=== PATIENT | female | born 1985 | race Hispanic/Latino ===

== ENCOUNTER 2022-01-17 01:58 | Inpatient (IN) | payer OTHER, SELFPAY ==
--- OUTSIDE RECORDS SUMMARY | 2022-01-17 02:01 | XMS REPORT | Continuity of Care Document ---
:1985 Author Organization [facility] t Address [address] [place] [address] Care Team Providers Name Role Phone Nicole Primary Care Physician Joseph YEPEZ Attending Clinician Unavailable Lucho EATON S Attending Clinician Doctor Unassigned, Name Attending Clinician Unavailable Anel BRYSON Attending Clinician Unavailable Payers Payer Name Policy Type Policy Number Effective Date Expiration Date [facility] [id number] 2015 [facility] MEDICAID 00:00:00 Problems Condition Condition Condition Status Onset Resolution Last Treating Co mments Source Name Details Category Date Date Treatment Clinician Date Other Other Disease Active 2015-10 Univers general general 0-07 [place] of [place] and advice and advice 00 Nh dical for for Branch contracept contracept lam lam management management History of History of Disease Active 2015-10 U nivers hysterecto hysterecto 0-07 it y of my my 00:00: [place] 00 Medical Branch Hair loss Hair loss Disease Active 2015-10 Uni vers 0-07 ity of 00:00: [place] 00 Medical Branch Gestationa Gestationa Disease Active U nivers l diabetes l diabetes 6-16 it y of mellitus, mellitus, [place] antepartum antepartum 00 [place] dical Branch Allergies, Adverse Reactions, Alerts Allergy Allergy Status Severity Reaction(s) Onset Inactive Treating Comm ents Source Name Type Date Date Clinician NO KNOWN Drug Active Univers ALLERGIE Class ity of S [facility] Social History Social Habit Start Date Stop Date Quantity Comments Source Exposure to Not sure [facility] SARS-CoV-2 (event) Medica l Branch Alcohol intake 2016-08-02 2016-08-02 0 /d [facility] 00:00:00 00:00:00 [facility] Branch Tobacco use and 2015-11-07 2015-11-07 Never used [facility] exposure 00:00:00 00:00:00 [facility] Branch Sex [birth year] [facility] 00:00:00 00:00:00 [facility] Branch Smoking Status Start Date Stop Date Source Never smoker [facility] Medications Ordered Filled Start Stop Current Ordering Indication Dosage Frequency Signature Comments Components Source Medication Medication Date Date Medication? Clinician (SIG) Name Name dicyclomine Yes 20mg 20 mg, Univ ers (BENTYL) 01-16 Intramuscu ity o f injection 13:00: lar, QID, Walker as 20 mg 00 First dose Medical on Wed Branch 01/16/22 at 0800, Until Discontinu ed, Routine ketorolac 2021- No 30mg 30 mg, Unive rs (TORADOL) 01-16 Slow IV ity of injection 09:30: 08:23 Push, [place] 30 mg 00 :00 ONCE, 1 Medical dose, On Branch 01/16/22 at 0430, Routine
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 medication : BIANCA CH iopamidol 2021- No [id number] 120mL 120 mL, Univers (ISOVUE 01-16 Intravenou ity o f 370-500 mL) 08:30: 07:24 s, ONCE, 1 [place] injection 00 :00 dose, On Medica l 120 mL Wed Branch 01/16/22 at 0330, Routine ondansetron 2021- No 4mg 4 mg, Slow Univers (ZOFRAN 01-16 IV Push, ity of (PF)) 08:00: 06:52 ONCE, 1 [place] injection 4 00 :00 dose, On Medi nicholas mg Wed Branch 01/16/22 at 0300, TRACIE NaCl 0.9% 2022-0 2022- No 1000mL at 999 Uni vers (NS) IV 3- 03-23 mL/hr, ity of infusion 07:45[place] 08[place]21 [place]venou [place] 1,000 mL 00 :00 s, ONCE, 1 Medic al dose, On Branch 01/16/22 at 0245, TRACIE dicyclomine Yes [id number] 20mg Take 1 Univers 20 mg 3-23 tablet by ity of tablet 00:00: mouth [place] 00 every 6 Medical (six) Branch hours as needed for Abdominal pain. ibuprofen Yes [id number] 800mg Take 1 Univers 800 mg 3-23 tablet by ity of tablet 00:00: mouth [place] 00 every 8 Medical (eight) Branch hours as needed for Pain (scale 4-6). ondansetron Yes [id number] 4mg Take 1 Univers (ZOFRAN) 4 3-23 tablet by ity of mg tablet 00:00: mouth [place] 00 every 8 Medical (eight) Branch hours as needed for Nausea and Vomiting (N/V). No known 2015-10 No Univers medications 0-07 ity of 15:10: [address] Immunizations Ordered Filled Immunization Date Status Comments [facility] e Immunization Name Name TD 2016-01-30 Completed [facility] 00:00:00 [facility] TD 2016-01-30 Completed [facility] 00:00:00 [facility] Vital Signs Vital Name Observation Time Observation Value Comments Source Systolic blood 2022-01-16 06:40:00 116 mm[Hg] Univer sity pressure [facility] Diastolic blood 2022-01-16 06:40:00 82 mm[facility]Hg[facility] 2022-01-16 06:40:00 74 /min [facility] Body temperature 2022-01-16 06:40:00 36.22 [facility] rate 2022-01-16 06:40:00 18 /min [facility] Body height 2022-01-16 06:40:00 162.6 cm [facility] Oxygen saturation in 2022-01-16 06:40:00 96 /min [facility] Arterial blood by [facility] Pulse oximetry Branch Procedures Procedure Date / Time Performed Performing Clinician Sour e URINALYSIS 2022-01-16 07:41:00 Bianca Ch [facility] CT ABDOMEN PELVIS W 2022-01-16 07:26:26 Pérez Yepez [facility] [place] CONTRAST [facility] LIPASE 2022-01-16 06:42:00 Bianca Ch [facility] COMP. METABOLIC PANEL 2022-01-16 06:42:00 Bianca Ch [facility] ([id number]) [facility] CBC WITH DIFF 2022-01-16 06:42:00 Bianca Ch [facility] NOTICE OF PRIVACY 2022-01-16 06:32:41 Doctor Unassigned, No Univ [facility] PRACTICES Name [facility] CONSENT/REFUSAL FOR 2022-01-16 06:32:23 [facility] Unassigned, [facility] AND Name [facility] TREATMENT Encounters Start End Encounter Admission Attending Care Care Encounter Source Date/Time Date/Time Type Type Clinicians Facility Department ID 2022-01-16 2022-01-16 Emergency X LUCHOUNM [facility] ERT [id number] Univers 01:36:00 03:32:00 [facility]22-[facility]-16 2022-01-16 Emergency LuchoUNM [facility] [id number] Univers 01:36:00 03:32:00 Pérez MCGEE [id number] i ty [facility] [id number] [facility] [id number] [facility] 084 Branch 2022-01-16 2022-01-16 Orders Doctor KYLE [id number] Univers 00:00:00 00:00:00 Only Unassigned, LILIANA [id number] ity of [place] [facility] [id number] [facility] [id number] [facility] 009 Branch 2017-08-16 2017-08-16 Outpatient Maximus BRYSON [facility] [id number] Univers 11:00:00 11:00:00 JB silveira [facility] Results Test Description Test Time Test Comments Results Result Comments Source CBC with Differential 2022-01-16 07:02:42 Test Item Value Reference Range Interpretation Comme nts WBC (test code = 6690-2) See_Comment [A utomated message] The system which ge nerated this result transmit alma reference range: 4.30 - 1 1.10 10*3/?L. The reference r james was not used to interpr et this result as normal/abnor mal. RBC (test code = 789-8) See_Comment [Au tomated message] The system which ge nerated this result transmit alma reference range: 3.93 - 5 .25 10*6/?L. The reference r james was not used to interpr et this result as normal/abnor mal. HGB (test code = 718-7) 13.1 g/dL 11.6-15.0 HCT (test code = 4544-3) 39.5 % 35.7-45.2 MCV (test code = 787-2) 88.4 fL 80.6-95.5 MCH (test code = 785-6) 29.3 pg 25.9-32.8 MCHC (test code = 786-4) 33.2 g/dL 31.6-35.1 RDW-SD (test code = 00718-3) 39.6 fL 39.0-49.9 RDW-CV (test code = 788-0) 12.2 % 12.0-15.5 PLT (test code = 777-3) See_Comment [Au tomated message] The system which ge nerated this result transmit alma reference range: 166 - 35 8 10*3/?L. The reference range was not used to interpret th is result as normal/abnormal . MPV (test code = 26082-4) 9.3 fL 9.5-12.9 L NRBC/100 WBC (test code = See_Comment [ Automated message] The [id number]) system which ge nerated this result transmit alma reference range: 0.0 - 10 .0 /100 WBCs. The reference r james was not used to interpr et this result as normal/abnor mal. NRBC x10^3 (test code = <0.01 See_Comment [Au tomated message] The 2917503029) system which ge nerated this result transmit alma reference range: 10*3/?L. The reference range was not u sed to interpret this result as normal/abnormal . GRAN MAT (NEUT) % (test code 49.8 % = 770-8) IMM GRAN % (test code = 0.70 % 9858287700) LYMPH % (test code = 736-9) 42.6 % MONO % (test code = 5905-5) 4.7 % EOS % (test code = 713-8) 1.5 % BASO % (test code = 706-2) 0.7 % GRAN MAT x10^3(ANC) (test 2.97 10*3/uL 1.88-7.09 code = 0297733997) IMM GRAN x10^3 (test code = 0.04 10*3/uL 0.00-0.06 9841531449) LYMPH x10^3 (test code = 2.54 10*3/uL 1.32-3.29 731-0) MONO x10^3 (test code = 0.28 10*3/uL 0.33-0.92 L 742-7) EOS x10^3 (test code = 0.09 10*3/uL 0.03-0.39 711-2) BASO x10^3 (test code = 0.04 10*3/uL 0.01-0.07 704-7) Lab Interpretation (test Abnormal code = 28457-9) [place] [facility] [id number] 07:01:00 Test Item Value Reference Range Interpretation Comments NA (test code = 138 mmol/L 135-145 6833089226) K (test code = 4.0 mmol/L 3.5-5.0 9130342696) CL (test code = 102 mmol/L 98-108 0710746925) CO2 TOTAL (test code = 25 mmol/L 23-31 3410563351) AGAP (test code = 2-16 7511679706) BUN (test code = 10 mg/dL 7-23 1257424645) GLUCOSE (test code = 91 mg/dL 70-110 5506168045) CREATININE (test code = 0.43 mg/dL 0.50-1.04 L 7950675278) TOTAL BILI (test code = 0.5 mg/dL 0.1-1.7 4114049286) CALCIUM (test code = 9.2 mg/dL 8.6-10.6 6676338442) T PROTEIN (test code = 7.6 g/dL 6.3-8.2 1614054919) ALBUMIN (test code = 4.6 g/dL 3.5-5.0 6346298555) ALK PHOS (test code = 75 U/L 34-122 1629392513) ALTv (test code = 99 U/L 5-35 H 1742-6) AST(SGOT) (test code = 55 U/L 13-40 H 5725626904) eGFR (test code = mL/min/1.73m2 8373978547) JULIAN (test code = JULIAN) Association of Glomerular Filtration Rate (GFR) and Staging of Kidney Disease* + --+ --+ ------+| GFR (mL/min/1.73 m2) ?| With Kidney Damage ?| ?Without Kidney Damage+ --------+ --------+ +| ?>90 ?| ?Stage one ?| ? Normal ?+ ---+ ---+ -------+| ?60-89 ?| ?Stage two ?| ? Decreased GFR ? + --+ --+ ------+| ?30-59 ?| ?Stage three ?| ? Stage three ? + --+ --+ ------+| ?15-29 ?| ?Stage four ? | ? Stage four ?+ ---+ ---+ -------+| ?<15 (or dialysis) ? ?| ?Stage five ? | ? Stage five ?+ ---+ ---+ -------+ *Each stage assumes the associated GFR level has been in effect for at least three months. ?Stages 1 to 5, with or without kidney disease, indicate chronic kidney disease. Notes: Determination of stages one and two (with eGFR >59mL/min/1.73 m2) requires estimation of kidney damage for at least three months as defined by structural or functional abnormalities of the kidney, manifested by either:Pathological abnormalities or Markers of kidney damage (including abnormalities in the composition of the blood or urine or abnormalities in imaging tests). Lab Interpretation Abnormal (test code = 99164-5) [place] [facility], [id number] 07:01:00 Test Item Value Reference Range Interpretation Comments LIPASE (test code = 7071421593) 71 U/L 0-220 Lab Interpretation (test code = Normal 39630-2) [facility]"
[2022-01-17] MEDS ORDERED: ONDANSETRON 4 MG/2 ML VIAL ONE (03:38)
[2022-01-17] MEDS ORDERED: NA CHLORIDE 0.9% 1,000 ML ONE (03:38)
[2022-01-17] MEDS ORDERED: MORPHINE 4 MG/ML SYR ONE (03:38)
[2022-01-17] MEDS ORDERED: FAMOTIDINE 20 MG/2 ML VIAL IV ONE (03:39)
[2022-01-17 04:18] LABS: Absolute Lymphocytes (CBC) 1.1 K/uL (0.7-4.9); Hematocrit 44.8 % (36.0-45.0); Lymphocytes % 12.7 % (15.3-44.8); MPV 7.7 fL (7.6-11.3)
[2022-01-17 04:25] LABS: ALT/SGPT 105 U/L (12-78); AST/SGOT 35 U/L (15-37); BUN Blood Urea Nitrogen 10 mg/dL (7-18); Bicarbonate 28 mmol/L (21-32); Glucose Level 116 mg/dL (74-106); Potassium 3.1 mmol/L (3.5-5.1); Sodium Level 140 mmol/L (136-145)
[2022-01-17 04:26] LABS: Albumin 4.1 g/dL (3.4-5.0); Alkaline Phosphatase 85 U/L (45-117); Bilirubin Total 0.3 mg/dL (0.2-1.0); Lipase 63 U/L (73-393); Protein, Total 8.4 g/dL (6.4-8.2)
[2022-01-17 04:27] LABS: Urine Blood Trace-intact (Negative); Urine Glucose Negative (Negative); Urine Protein Negative (Negative); Urine Specific Gravity >=1.030 (1.005-1.030); Urine pH 5.5 (5.0-7.0)
[2022-01-17] MEDS ORDERED: CEFTRIAXONE 1000 MG/VIAL ONE (04:50)
[2022-01-17 04:53] LABS: Urine Specific Gravity/Preg >1.030 (1.005-1.030)
--- NOTE | 2022-01-17 04:56 | EDPHYS ---
Physician Documentation [facility] Name: Vida Hillman Age: 36 yrs Sex: Female : 1985 Arrival Date: 01/17/2022 Time: 01:58 Bed 25 Private MD: ED Physician Malvin Licea HPI: 01/17 03:41 This 36 yrs old Female presents to ER via EMS with complaints of PERCOCET OD. basil 03:41 The patient presents with confusion, decreased mental status. Onset: The basil symptoms/episode began/occurred just prior to arrival. Possible causes: drug use, low blood sugar, unknown. Associated signs and symptoms: Pertinent positives: confusion. Current symptoms: In the emergency department the patient's symptoms have improved, mildly. [employer]: 02:14 LMP N/A - sv1 Historical: - Allergies: 02:14 Hydrocodone-Acetaminophen; sv1 - Immunization history:: Adult Immunizations not up to date, Client reports having NOT received the Covid vaccine. Last tetanus immunization: not immunized Pneumococcal vaccine is not up to date, Flu vaccine is not up to date. Patient has never been vaccinated. Hepatitis A vaccine is not up to date Hepatitis B vaccine is not up to date Meningococcal vaccine is not up to date Vaccine Information Sheet provided. - Social history:: Smoking status: Patient denies any tobacco usage or history of. ROS: 04:29 Constitutional: Negative for fever, chills, and weight loss, Eyes: Negative for injury, basil pain, redness, and discharge, ENT: Negative for injury, pain, and discharge, Neck: Negative for injury, pain, and swelling, Cardiovascular: Negative for chest pain, palpitations, and edema, Respiratory: Negative for shortness of breath, cough, wheezing, and pleuritic chest pain, Back: Negative for injury and pain, : Negative for injury, bleeding, discharge, and swelling, MS/Extremity: Negative for injury and deformity, Skin: Negative for injury, rash, and discoloration, Neuro: Negative for headache, weakness, numbness, tingling, and seizure, Psych: Negative for depression, anxiety, suicide ideation, homicidal ideation, and hallucinations, Allergy/Immunology: Negative for hives, rash, and allergies, Endocrine: Negative for neck swelling, polydipsia, polyuria, polyphagia, and marked weight changes. 04:29 Abdomen/GI: Positive for abdominal pain, nausea and vomiting, diarrhea. 04:29 Skin: Negative for abrasions, abscesses, lesions, pallor. Exam: 04:29 Constitutional: This is a well developed, well nourished patient who is awake, alert, basil and in no acute distress. Head/Face: Normocephalic, atraumatic. Eyes: Pupils equal round and reactive to light, extra-ocular motions intact. Lids and lashes normal. Conjunctiva and sclera are non-icteric and not injected. Cornea within normal limits. Periorbital areas with no swelling, redness, or edema. ENT: Nares patent. No nasal discharge, no septal abnormalities noted. Tympanic membranes are normal and external auditory canals are clear. Oropharynx with no redness, swelling, or masses, exudates, or evidence of obstruction, uvula midline. Mucous membranes moist. Neck: Trachea midline, no thyromegaly or masses palpated, and no cervical lymphadenopathy. Supple, full range of motion without nuchal rigidity, or vertebral point tenderness. No Meningismus. Chest/axilla: Normal chest wall appearance and motion. Nontender with no deformity. No lesions are appreciated. Cardiovascular: Regular rate and rhythm with a normal S1 and S2. No gallops, murmurs, or rubs. Normal PMI, no JVD. No pulse deficits. Respiratory: Lungs have equal breath sounds bilaterally, clear to auscultation and percussion. No rales, rhonchi or wheezes noted. No increased work of breathing, no retractions or nasal flaring. Back: No spinal tenderness. No costovertebral tenderness. Full range of motion. Pelvic Exam: Normal external genitalia. Speculum exam with closed cervical os, no discharge or bleeding noted. Bimanual exam with normal adnexa, no adnexal or cervical motion tenderness. Normal uterus. Female : Normal external genitalia. Skin: Warm, dry with normal turgor. Normal color with no rashes, no lesions, and no evidence of cellulitis. MS/ Extremity: Pulses equal, no cyanosis. Neurovascular intact. Full, normal range of motion. Neuro: Awake and alert, GCS 15, oriented to person, place, time, and situation. Cranial nerves II-XII grossly intact. Motor strength 5/5 in all extremities. Sensory grossly intact. Cerebellar exam normal. Normal gait. Psych: Awake, alert, with orientation to person, place and time. Behavior, mood, and affect are within normal limits. 04:29 Abdomen/GI: Inspection: abdomen appears normal, Bowel sounds: normal, Palpation: mild abdominal tenderness, in all quadrants, Liver: no appreciated palpable abnormalities, Hernia: not appreciated. Vital Signs: 02:09 BP 108 / 63 LA Sitting (auto/reg); Pulse 95; Resp 21 S; Temp 98.5(O); Pulse Ox 100% on sv1 R/A; Weight 68.04 kg; Height 5 ft. 4 in. (162.56 cm); Pain 10/10; 02:17 BP 108 / 63 LA Sitting (auto/reg); Pulse 95 MON; Resp 21 S; Temp 98.5(O); Pulse Ox 100% sv1 on R/A; Pain 10/10; 02:09 Body Mass Index 25.75 (68.04 kg, 162.56 cm) sv1 MDM: 02:08 Patient medically screened. [facility] 04:31 Data reviewed: vital signs, nurses notes, lab test result(s), radiologic studies, CT basil scan. 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 rate is 95 beats/min, rhythm is regular, Pulse oximetry: on room air is 100 %. Test interpretation: by ED physician or midlevel provider: ECG, plain radiologic studies. Counseling: I had a detailed discussion with the patient and/or guardian regarding: the historical points, exam findings, and any diagnostic results supporting the discharge/admit diagnosis, lab results, radiology results, the need for outpatient follow up. 01/17 02:09 Order name: CBC with Diff; Complete Time: 04:27 [facility] 01/17 02:09 Order name: CMP; Complete Time: 04:27 [facility] 01/17 02:09 Order name: Lipase; Complete Time: 04:27 [facility] 01/17 04:27 Order name: Urine --Ancillary (enter results); Complete Time: 04:54 [facility] 01/17 04:27 Order name: Urine Dipstick-Ancillary; Complete Time: 04:27 EDAZ 01/17 04:28 Order name: Urine Culture [facility] 01/17 05:15 Order name: Stool Culture [facility] 01/17 05:17 Order name: Fecal Leukocyte Stain [facility] 01/17 05:17 Order name: Occult Blood [facility] 01/17 05:20 Order name: COVID-19/FLU A+B (Document "Date of Onset" if Symptomatic) mw2 01/17 02:09 Order name: IV Saline Lock; Complete Time: 03:49 [facility] 01/17 02:09 Order name: Labs collected and sent; Complete Time: 03:49 [facility] 01/17 02:09 Order name: Urine Dipstick-Ancillary (obtain specimen); Complete Time: 04:39 [facility] 01/17 02:09 Order name: Urine Test (obtain specimen); Complete Time: 04:39 [facility] Administered Medications: 02:30 Drug: morphine 4 mg Route: IVP; Site: right antecubital; sv1 04:38 Follow up: Response: No adverse reaction; Pain is decreased sv1 03:48 Drug: NS 0.9% 1000 ml Route: IV; Rate: 1 bolus; Site: right antecubital; sv1 03:48 Drug: Pepcid (famotidine) 20 mg Route: IVP; Site: right antecubital; sv1 03:49 Drug: Zofran (Ondansetron) 4 mg Route: IVP; Site: right antecubital; sv1 04:09 Follow up: Response: No adverse reaction sv1 04:09 Follow up: Response: No adverse reaction; Pain is decreased sv1 04:11 Not Given (Duplicate Order): Zofran (Ondansetron) 4 mg IVP once; over 2 minutes sv1 04:56 Drug: Rocephin (cefTRIAXone) 1 grams Route: IV; Rate: bolus; Site: right antecubital; sv1 05:19 Follow up: Response: No adverse reaction; IV Status: Completed infusion sv1 06:51 Follow up: Response: No adverse reaction sv1 05:18 Drug: Potassium Effervescent Tablet 50 mEq Route: PO; sv1 06:51 Follow up: Response: No adverse reaction sv1 05:18 Drug: Tylenol 1000 mg Route: PO; sv1 06:54 Follow up: Response: No adverse reaction; Temperature is decreased sv1 07:08 Drug: Cipro (ciprofloxacin) 400 mg Volume: 200 ml; Route: IVPB; Infused Over: 60 mins; sv1 Site: right antecubital; 07:08 Drug: NS 0.9% with KCl 20 mEq/L 1000 ml Route: IV; Rate: 125 ml/hr; Site: right sv1 antecubital; Disposition Summary: 01/17/22 05:16 Hospitalization Ordered Hospitalization Status: Observation basil Provider: Lizandro Yousif cha Location: Telemetry/MedSurg (observation)(01/17/22 05:16) basil Condition: Fair(01/17/22 05:16) basil Problem: new(01/17/22 05:16) basil Symptoms: have improved(01/17/22 05:16) basil Bed/Room Type: Standard [facility] Room Assignment: 222(01/17/22 08:18) ss Diagnosis - Abdominal tenderness basil - Fever, unspecified basil - Diarrhea, unspecified(01/17/22 05:16) basil - Weakness basil - Hypokalemia(01/17/22 05:16) basil Forms: - Medication Reconciliation Form basil - SBAR form basil Signatures: Dispatcher [employer] EDMS Malvin Licea MD MD cha Smirch, Shelby RN RN ss King Bass RN RN sv1 Corrections: (The following items were deleted from the chart) 04:48 03:04 Abdomen Pelvis W Con+CT.RAD.BRZ ordered. EDMS EDMS 05:15 04:55 Home basil basil 05:15 04:55 new basil basil 05:15 04:55 have improved basil basil 05:15 04:55 Stable basil basil 05:15 04:55 Vomiting basil basil 05:15 04:55 Diarrhea, unspecified basil basil 05:15 04:55 UTI/ Urinary tract infection, site not specified basil basil 05:15 04:55 Hypokalemia basil basil 08:18 05:16 basil ss
--- NOTE | 2022-01-17 04:56 | ER ---
Nurse's Notes [facility] Name: Vida Hillman Age: 36 yrs Sex: Female : 1985 Arrival Date: 01/17/2022 Time: 01:58 Bed 25 Private MD: Diagnosis: Abdominal tenderness;Fever, unspecified;Diarrhea, unspecified;Weakness;Hypokalemia Presentation: 01/17 02:09 Chief complaint: Patient states: abd pain, nausea and vomiting. Coronavirus screen: sv1 Vaccine status: Patient reports being unvaccinated. no flu, pna or covid vaccinations. Client denies travel out of the [place] in the last 14 days. Ebola Screen: Patient denies exposure to infectious person. Patient denies travel to an Ebola-affected area in the 21 days before illness onset. No symptoms or risks identified at this time. Initial Sepsis Screen: Does the patient meet any 2 criteria? No. Patient's initial sepsis screen is negative. Does the patient have a suspected source of infection? No. Patient's initial sepsis screen is negative. Risk Assessment: Do you want to hurt yourself or someone else? Patient reports no desire to harm self or others. Onset of symptoms was January 14, 2022. 02:09 Method Of Arrival: EMS: [facility] sv1 02:09 Acuity: MELLY 3 sv1 Triage Assessment: 02:14 General: Appears distressed, uncomfortable, Behavior is cooperative, appropriate for sv1 age, flat, Denies. 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 Last tetanus immunization: not immunized Pneumococcal vaccine is not up to date, Flu vaccine is not up to date. Patient has never been vaccinated. Hepatitis A vaccine is not up to date Hepatitis B vaccine is not up to date Meningococcal vaccine is not up to date Vaccine Information Sheet provided. - Social history:: Smoking status: Patient denies any tobacco usage or history of. Screenin:16 Abuse screen: Denies threats or abuse. Nutritional screening: No deficits noted. sv1 Tuberculosis screening: No symptoms or risk factors identified. Fall Risk None identified. Assessment: 02:57 Pain: Complains of pain in abdomen. sv1 08:54 General: Gave report to Mariya Barron cb5 Vital Signs: 02:09 BP 108 / 63 LA Sitting (auto/reg); Pulse 95; Resp 21 S; Temp 98.5(O); Pulse Ox 100% on sv1 R/A; Weight 68.04 kg; Height 5 ft. 4 in. (162.56 cm); Pain 10/10; 02:17 BP 108 / 63 LA Sitting (auto/reg); Pulse 95 MON; Resp 21 S; Temp 98.5(O); Pulse Ox 100% sv1 on R/A; Pain 10/10; 02:09 Body Mass Index 25.75 (68.04 kg, 162.56 cm) sv1 ED Course: 01:58 Patient arrived in ED. mw2 02:06 King Bass, BILLY is Primary Nurse. sv1 02:08 Malvin Licea MD is Attending Physician. basil 02:14 Triage completed. sv1 02:14 Arm band placed on right wrist. sv1 02:16 Patient has correct armband on for positive identification. Placed in gown. Bed in low sv1 position. Call light in reach. Side rails up X2. 02:56 Inserted saline lock: 20 gauge in right antecubital area, using aseptic technique. sv1 04:44 Urine Culture Sent. sv1 05:15 Lizandro Yousif is Hospitalizing Provider. basil 05:43 COVID-19/FLU A+B (Document "Date of Onset" if Symptomatic) Sent. lp1 Administered Medications: 02:30 Drug: morphine 4 mg Route: IVP; Site: right antecubital; sv1 04:38 Follow up: Response: No adverse reaction; Pain is decreased sv1 03:48 Drug: NS 0.9% 1000 ml Route: IV; Rate: 1 bolus; Site: right antecubital; sv1 03:48 Drug: Pepcid (famotidine) 20 mg Route: IVP; Site: right antecubital; sv1 03:49 Drug: Zofran (Ondansetron) 4 mg Route: IVP; Site: right antecubital; sv1 04:09 Follow up: Response: No adverse reaction sv1 04:09 Follow up: Response: No adverse reaction; Pain is decreased sv1 04:11 Not Given (Duplicate Order): Zofran (Ondansetron) 4 mg IVP once; over 2 minutes sv1 04:56 Drug: Rocephin (cefTRIAXone) 1 grams Route: IV; Rate: bolus; Site: right antecubital; sv1 05:19 Follow up: Response: No adverse reaction; IV Status: Completed infusion sv1 06:51 Follow up: Response: No adverse reaction sv1 05:18 Drug: Potassium Effervescent Tablet 50 mEq Route: PO; sv1 06:51 Follow up: Response: No adverse reaction sv1 05:18 Drug: Tylenol 1000 mg Route: PO; sv1 06:54 Follow up: Response: No adverse reaction; Temperature is decreased sv1 07:08 Drug: Cipro (ciprofloxacin) 400 mg Volume: 200 ml; Route: IVPB; Infused Over: 60 mins; sv1 Site: right antecubital; 07:08 Drug: NS 0.9% with KCl 20 mEq/L 1000 ml Route: IV; Rate: 125 ml/hr; Site: right sv1 antecubital; Outcome: 04:55 Discharge ordered by . basil 05:16 Decision to Hospitalize by Provider. basil 09:32 Patient left the ED. dw3 Signatures: Malvin Licea MD MD cha Pena, Laura, RN RN lp1 Lucien Hardwick mw2 King Bass RN RN sv1 Nishi Hernández, BILLY RN cb5 Yvette Smith RN RN dw3 Corrections: (The following items were deleted from the chart) 04:09 03:40 Zofran (Ondansetron) 4 mg IVP in right antecubital sv1 sv1 04:09 03:40 morphine 4 mg IVP in right antecubital sv1 sv1
[2022-01-17] MEDS ORDERED: ACETAMINOPHEN 500 MG TAB ONE (05:14)
[2022-01-17] MEDS ORDERED: POTASSIUM 25 MEQ EFFERV TAB ONE (05:14)
--- NOTE | 2022-01-17 05:47 | P.HP ---
Certification for Inpatient Patient admitted to: Observation With expected LOS: <2 Midnights Patient will require the following post-hospital care: None Practitioner: I am a practitioner with admitting privileges, knowledge of patient current condition, hospital course, and medical plan of care. Services: Services provided to patient in accordance with Admission requirements found in Title 42 Section 412.3 of the Code of Federal Regulations <Gianna Lundberg - Last Filed: 01/17/22 05:42> Patient History Date of Service: 01/17/22 Reason for admission: N/V/D, Abd Pain, Fever History of Present Illness: patient is a 36-year-old female who presented to the ED with 2-week history of nausea vomiting diarrhea fever abdominal pain weakness. She states she went to the [place] ER last night, had an abdominal CT and was prescribed Bentyl and Zofran. She states the Bentyl gave her an allergic reaction and she started feeling very poorly so she decided to come to the ED. Labs here remarkable for potassium 3.1 and nitrates in the urine. In the ED she received morphine, fluids. Zofran, Rocephin, Tylenol. She was going to be discharged but then spiked a fever. And patient does not feel comfortable leaving. Patient is a poor historian. Will admit for observation Home medications list reviewed: Yes - Past Medical/Surgical History Diabetic: No Past Medical History: Patient denies medical history -: section in 1999,2001 and 2003 -: Open heart surgery -: Cholecystectomy -: Hysterectomy -: Gastric sleeve Psychosocial/ Personal History: Patient lives at home with her . - Family History Mother -: Diabetes Notes: both parents and siblings have diabetes Father -: Hypertension Notes: brother is hypertensive. - Social History Smoking Status: Never smoker Alcohol use: No CD- Drugs: No Caffeine use: No Place of Residence: Home <Gianna Lundberg - Last Filed: 01/17/22 05:42> Date of Service: 01/17/22 <Merlene Benjamin - Last Filed: 01/17/22 08:03> Allergies No Known Drug Allergies Allergy (Unverified 03/13/15 08:16) Unknown Home Medications: Vit27&Calcium/Iron/FA [ Rx Tablet] 1 each PO DAILY 11/22/14 Ciprofloxacin HCl [Cipro 500 MG Tablet] 500 mg PO BID 7 Days tablet 01/25/15 Codeine/APAP [Tylenol W/Codeine #3 tab] 1 tab PO Q6HP PRN #25 tab 01/25/15 Review of Systems General: Fever, Weakness, Malaise Gastrointestinal: Nausea, Vomiting, Abdominal Pain, Diarrhea <Gianna Lundberg - Last Filed: 01/17/22 05:42> Physical Examination - Physical Exam General: Alert, In no apparent distress HEENT: Atraumatic, PERRLA, Other (Dry mucous membranes), EOMI, Sclerae nonicteric Neck: Supple, 2+ carotid pulse no bruit, No LAD, Without JVD or thyroid abnormality Respiratory: Clear to auscultation bilaterally, Normal air movement Cardiovascular: Normal S1 S2 Gastrointestinal: Normal bowel sounds, No tenderness Musculoskeletal: No tenderness Integumentary: No rashes Neurological: Normal speech, Normal strength at 5/5 x4 extr, Normal tone, Normal affect - Studies Laboratory Data (last 24 hrs) 01/17/22 03:45: Sodium 140, Potassium 3.1 L, BUN 10, Creatinine 0.61, Glucose 116 H, Total Bilirubin 0.3, AST 35, ALT 105 H, Alkaline Phosphatase 85, Lipase 63 L 01/17/22 03:45: WBC 8.60, Hgb 15.1 H, Hct 44.8, Plt Count 250 Microbiology Data (last 24 hrs): 01/17/22 05:17 Stool Stool Occult Blood (BESSY) - 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 <Gianna Lundberg - Last Filed: 01/17/22 05:42> - Studies Laboratory Data (last 24 hrs) 01/17/22 03:45: Sodium 140, Potassium 3.1 L, BUN 10, Creatinine 0.61, Glucose 116 H, Total Bilirubin 0.3, AST 35, ALT 105 H, Alkaline Phosphatase 85, Lipase 63 L 01/17/22 03:45: WBC 8.60, Hgb 15.1 H, Hct 44.8, Plt Count 250 Microbiology Data (last 24 hrs): 01/17/22 05:17 Stool Stool Occult Blood (BESSY) - 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 patient will be on clear liquid diet. Tylenol as needed fever. likely discharge the next 24 hours. Lovenox for DVT prophylaxis. Replete potassium Discharge Plan: Home Plan to discharge in: 24 Hours - Advance Directives Does patient have a Living Will: No Does patient have a Durable POA for Healthcare: No - Code Status/Comfort Care Code Status Assessed: Yes (Full) Critical Care: No Time Spent Managing Pts Care (In Minutes): 70 <Gianna Lundberg - Last Filed: 01/17/22 05:42> Date of Service: 01/17/22 Subjective: HPI as mentioned above Physical Examination: Vitals: Afebrile vital signs are stable Physical exam: Cardiovascular: Within normal limits. Lungs: Within normal limits Abdomen: Within normal limits Neuro: Awake, alert, oriented to person place and time Assessment: 1. Abdominal pain/intractable nausea and vomiting Plan: 1. Continue with current plan of care as mentioned above <Merlene Benjamin - Last Filed: 01/17/22 08:03>
[2022-01-17 06:31] LABS: SARS-COV-2 RT PCR NEGATIVE (NEGATIVE)
[2022-01-17] MEDS ORDERED: CIPROFLOXACIN HCL 500 MG TAB ONE (07:00)
[2022-01-17] MEDS ORDERED: NS KCL 20MEQ 1,000 ML IV ONE (07:01)
[2022-01-17 09:49] VITALS: BMI 28.3
[2022-01-17] MEDS ORDERED: ZOLPIDEM TARTRATE 5 MG TABLET PO PRN (12:38)
[2022-01-17] MEDS ORDERED: ACETAMINOPHEN 500 MG TAB PO PRN (12:38)
[2022-01-17] MEDS ORDERED: HYDROMORPHONE HCL 0.5 MG/0.5 ML INJ IV PRN (13:05)
[2022-01-17] MEDS: ENOXAPARIN 40 MG/0.4 ML SQ SCH (13:20)
[2022-01-17] MEDS: MORPHINE 2 MG/ML SYR IV PRN (15:17)
[2022-01-17] MEDS: D5 0.45 NS 1,000 ML IV SCH (16:05)
[2022-01-17] MEDS: HYDROCORTISONE SUC 100 MG INJ IV SCH (17:27)
[2022-01-17] MEDS: LOPERAMIDE HCL 2 MG CAPSULE PO PRN (17:28)
--- NOTE | 2022-01-17 17:38 | RAD REPORT ---
EXAM DESCRIPTION: CTAbdomen Pelvis W Contrast - 01/17/2022 5:13 pm CLINICAL HISTORY: Abdominal pain. diarrhea; nause and vomiting COMPARISON: No comparisons TECHNIQUE: Biphasic CT imaging of the abdomen and pelvis was performed with 100 ml non-ionic IV cont rast. All CT scans are performed using dose optimization technique as appropriate and may include automated exposure control or mA/KV adjustment according to patient size. FINDINGS: Linear atelectasis is present both posterior lung bases.Postoperative changes are present about the stomach. Cholecystectomy clips. The liver, spleen, pancreas, adrenal glands and kidneys are within normal limits. No bowel obstruction, free air, free fluid or abscess. Mildly prominent fluid-filled small bowel loop s are seen in the central abdomen. Fluid filled loops of colon also present. The appendix is normal. No evidence of significant lymphadenopathy. No suspicious bony findings. IMPRESSION: Findings suggesting mild enteritis/colitis pattern.
[2022-01-18] MEDS: HYDROCORTISONE SUC 100 MG INJ IV SCH ×3 (00:05→17:40)
[2022-01-18] MEDS: LOPERAMIDE HCL 2 MG CAPSULE PO PRN ×4 (03:12→17:40)
[2022-01-18] MEDS: D5 0.45 NS 1,000 ML IV SCH (03:12)
[2022-01-18] MEDS: ONDANSETRON 4 MG/2 ML VIAL IV PRN ×2 (03:15→14:02)
[2022-01-18] MEDS: MORPHINE 2 MG/ML SYR IV PRN ×3 (03:15→17:44)
[2022-01-18 06:54] LABS: Bicarbonate 26 mmol/L (21-32); Glucose Level 110 mg/dL (74-106); Potassium 3.6 mmol/L (3.5-5.1); Sodium Level 140 mmol/L (136-145)
[2022-01-18 07:01] LABS: BUN Blood Urea Nitrogen < 3 mg/dL (7-18)
[2022-01-18 08:09] VITALS: O2SAT 100
[2022-01-18] MEDS: ENOXAPARIN 40 MG/0.4 ML SQ SCH (09:55)
[2022-01-18] MEDS ORDERED: clonazePAM 1 MG TAB PO ONE (10:17)
[2022-01-18 13:46] LABS: C.diff Antigen/Toxin Ag neg : Tox neg (NEG : NEG)
[2022-01-18] MEDS ORDERED: clonazePAM 0.5 MG TAB PO SCH (14:00)
[2022-01-18] MEDS ORDERED: POTASSIUM 25 MEQ EFFERV TAB PO ONE (15:00)
[2022-01-18 16:18] VITALS: BP 94/61; TEMP 97
== END 2022-01-18 19:00 | disposition home or self-care (01) | DRG 641 ==
LOC: ER 01:58 → ERHOLD 05:42 → 2ND 08:58 → OBSVTOIN 09:34
PROVIDERS: ADMIT Hospitalist; ATTEND Hospitalist
DX: E87.6 Hypokalemia (principal); R11.2 Nausea with vomiting, unspecified; R19.7 Diarrhea, unspecified; R53.1 Weakness; Z98.84 Bariatric surgery status; Z20.822 Contact with and (suspected) exposure to COVID-19
CPT/HCPCS: 0240U; 36415; 74177; 80048; 80053; 81003; 81025; 82274; 83690; 85025; 87045; 87046; 87077; 87086; 87088; 87186; 87324; 87449; 89055; 96365; 96375; 99284; G0378; J1650; J1720; J2270; J2405; J3480; J7030; J7799; Q9967

== ENCOUNTER → 2023-12-01 | Emergency (ER) | payer SELFPAY ==
[~2023-12-01] MED LIST: FLUORESCEIN SODIUM 1 MG/WRAP ONE; TETRACAINE HCL 0.5% 4ML OPTH ONE
--- OUTSIDE RECORDS SUMMARY | 2023-12-01 17:12 | XMS REPORT | Continuity of Care Document ---
Author Name Unknown Address [address] [place] [address] [facility] thconnect Address [address] [place] [address] Care Team Providers Care Medical Typist Name Role Phone HERBERT SMITH Primary Care Physician Unavailab DAXA Mcfarlane Attending Clinician Unavailable Daxa Johnson Attending Clinician [phone] Doctor Unassigned, [place] Attending Clinician U JB Suero Attending Clinician Unavailable DAXA YEPEZ Admitting Clinician Unavailable Payers Payer Name Policy Type Policy Number Effective Date Expirati on Date Source [facility] MEDICAID [id number] 2015 00:00:00 Problems Condition Name Condition Details Condition Category Status Onset Date Resolution Date Last Treatment Date Treating Clinician Comments Source Other general counseling and advice for contracept lam management Other general counseling and advice for contracept lam management Disease Active 2015-10 00:00: 00 [facility] History of hysterecto my History of hysterecto my Disease Active 2015-10 00:00: 00 [facility] Hair loss Hair loss Disease Active 2015-10 00:00: 00 [facility] Gestationa l diabetes mellitus, antepartum Gestationa l diabetes mellitus, antepartum Disease Active 04-11 00:00: 00 [facility] Allergies, Adverse Reactions, Alerts Allergy Name Allergy Type Status Severity Reaction(s) Onset Date Inactive Date Treating Clinician Comments Source NO KNOWN ALLERGIE S Drug Class Active [facility] Social History Social Habit Start Date Stop Date Quantity Comments Source Exposure to SARS-CoV-2 (event) Not sure [facility] Alcohol intake 2016-08-02 00:00:00 2016-08-02 00:00:00 0 /d [facility] Tobacco use and exposure 2015-11-07 00:00:00 2015-11-07 00:00:00 Never used [facility] Sex Ass[birth year] At 1985 00:00:00 1985 00:00:00 [facility] Smoking Status Start Date Stop Date Source Never smoker [facility] Medications Ordered Medication Name Filled Medication Name Start Date Stop Date Current Medication? Ordering Clinician Indication Dosage Frequency Signature (SIG) Comments Components Source dicyclomine (BENTYL) injection 20 mg 01-16 13:00: 00 Yes 20mg 20 mg, Intramuscu lar, QID, First dose on Fri01/16/22 at 0800, Until Discontinu ed, Routine [facility] ketorolac (TORADOL) injection 30 mg 01-16 09:30: 00 01-16 08:23 :00 No 30mg 30 mg, Slow IV Push, ONCE, 1 dose, On Fri01/16/22 at 0430, Routine
engineering faculty member approving Restricted medication : POORNIMA CH [facility] iopamidol (ISOVUE 370-500 mL) injection 120 mL 01-16 08:30: 00 01-16 07:24 :00 No [id number] 120mL 120 mL, Intravenou s, ONCE, 1 dose, On Fri01/16/22 at 0330, Routine [facility] ondansetron (ZOFRAN (PF)) injection 4 mg 01-16 08:00: 00 01-16 06:52 :00 No 4mg 4 mg, Slow IV Push, ONCE, 1 dose, On Fri01/16/22 at 0300, TRACIE [facility] NaCl 0.9% (NS) IV infusion 1,000 mL 01-16 07:45: 00 01-16 08:21 :00 No 1000mL at 999 mL/hr, Intravenou s, ONCE, 1 dose, On Fri01/16/22 at 0245, TRACIE [facility] dicyclomine 20 mg tablet 01-16 00:00: 00 Yes [id number] 20mg Take 1 tablet by mouth every 6 (six) hours as needed for Abdominal pain. [facility] ibuprofen 800 mg tablet 01-16 00:00: 00 Yes [id number] 800mg Take 1 tablet by mouth every 8 (eight) hours as needed for Pain (scale 4-6). [facility] ondansetron (ZOFRAN) 4 mg tablet 01-16 00:00: 00 Yes [id number] 4mg Take 1 tablet by mouth every 8 (eight) hours as needed for Nausea and Vomiting (N/V). [facility] No known medications 2015-10 0 15:10: [address] [facility] Vital Signs Vital Name Observation Time Observation Value Comments S ource Systolic blood pressure 2022-01-16 06:40:00 116 mm[Hg] [facility] Diastolic blood pressure 2022-01-16 06:40:00 82 mm[Hg] [facility] Heart rate 2022-01-16 06:40:00 74 /min General acute hospital Body temperature 2022-01-16 06:40:00 36.22 Cecily [facility] Respiratory rate 2022-01-16 06:40:00 18 /min [facility] Body height 2022-01-16 06:40:00 162.6 cm [facility] Oxygen saturation in Arterial blood by Pulse oximetry 2022-01-16 06:40:00 96 /min [facility] Procedures Procedure Date / Time Performed Performing Clinicia n Source URINALYSIS 2022-01-16 07:41:00 Poornima [facility] S [facility] CT ABDOMEN PELVIS W CONTRAST 2022-01-16 07:26:26 Daxa Yepez [facility] LIPASE 2022-01-16 06:42:00 Poornima Ch [facility] COMP. METABOLIC PANEL ([id number]) 2022-01-16 06:42:00 Poornima Ch [facility] CBC WITH DIFF 2022-01-16 06:42:00 Poornima Ch [facility] NOTICE OF PRIVACY PRACTICES 2022-01-16 06:32:41 Doctor Unassigned, [place] [facility] CONSENT/REFUSAL FOR DIAGNOSIS AND TREATMENT 2022-01-16 06:32:23 Doctor Unassigned, [place] [facility] Encounters Start Date/Time End Date/Time Encounter Type Admission Type Attending [facility] Care Facility Care Department Encounter ID Source 2022-01-16 01:36:00 2022-01-16 03:32:00 Emergency X DAXA YEPEZ [facility] ERT [id number] [facility] 2022-01-16 01:36:00 2022-01-16 03:32:00 Emergency Daxa Yepez [facility] [id number] [facility] 2022-01-16 00:00:00 2022-01-16 00:00:00 Orders Only Doctor Unassigned, [place] [facility] [id number] [facility] 2017-08-16 11:00:00 2017-08-16 11:00:00 Outpatient JB GONZALES [facility] [id number] [facility] Results Test Description Test Time Test Comments Results Result Co mments Source [facility] [id number] 07:01:00* Test Item Value Reference Range Interpretation Comme nts NA (test code = 9356451718) 138 mmol/L 135-145 K (test code = 5451879640) 4.0 mmol/L 3.5-5.0 CL (test code = 8588097557) 102 mmol/L 98-108 CO2 TOTAL (test code = 2747101315) 25 mmol/L 23-31 AGAP (test code = 9029194210) 2-16 BUN (test code = 0282180490) 10 mg/dL 7-23 GLUCOSE (test code = 0101990508) 91 mg/dL 70-110 CREATININE (test code = 6003878182) 0.43 mg/dL 0.50-1.04 L TOTAL BILI (test code = 3029643219) 0.5 mg/dL 0.1-1.1 CALCIUM (test code = 4719337808) 9.2 mg/dL 8.6-10.6 T PROTEIN (test code = 8131325715) 7.6 g/dL 6.3-8.2 ALBUMIN (test code = 5187112449) 4.6 g/dL 3.5-5.0 ALK PHOS (test code = 1636931793) 75 U/L 34-122 ALTv (test code = 1742-6) 99 U/L 5-35 H AST(SGOT) (test code = 3959513931) 55 U/L 13-40 H eGFR (test code = 2837524804) mL/min/1.73m2 JULIAN (test code = JULIAN) Association of [...] or abnormalities in imaging tests). Lab Interpretation (test code = 02404-5) [facility]normal [facility] [id number] 07:01:00* Test Item Value Reference Range Interpretation Comme nts LIPASE (test code = 6332351143) 71 U/L 0-220 Lab Interpretation (test cod e = 44588-7) Normal [facility]"
--- NOTE | 2023-12-01 18:41 | EDPHYS ---
Physician Documentation [facility] Name: Vida Hillman Age: 38 yrs Sex: Female : 1985 Arrival Date: 12/01/2023 Time: 17:08 Bed 10 Private MD: BHUPINDER Physician Malvin Licea HPI: 12/01 17:50 This 38 yrs old Female presents to ER via Ambulatory with complaints of Eye cp Problem. 17:50 The patient is experiencing pain, redness, clear drainage, started in left eye and now cp starting to have similar symptoms in right eye. 17:50 Onset: The symptoms/episode began/occurred 11-23-2023. cp 17:50 Duration: the symptoms are continuous, steadily getting worse. Associated signs and cp symptoms: Pertinent negatives: chills, dizziness, ear ache, fever, headache, runny nose, vision loss. Patient wears glasses, wears soft contacts. Historical: - Allergies: 17:32 No Known Allergies; ko1 - PMHx: 17:32 Anxiety; ambien; ko1 - Immunization history:: Adult Immunizations up to date. - Social history:: Smoking status: Patient denies any tobacco usage or history of. ROS: 18:00 Constitutional: Negative for body aches, chills, fever, poor PO intake, cp 18:00 Eyes: Positive for blurry vision, pain, redness, swelling, clear drainage, cp 18:00 ENT: Negative for drainage from ear(s), ear pain, rhinorrhea, sinus pain, sore throat, difficulty swallowing, difficulty handling secretions, 18:00 Neck: Negative for pain with movement, pain at rest, stiffness, 18:00 Respiratory: Negative for cough, shortness of breath, wheezing, 18:00 Abdomen/GI: Negative for abdominal pain, nausea, vomiting, and diarrhea, 18:00 Skin: Negative for cellulitis, rash, 18:00 All other systems are negative, Exam: 18:05 Constitutional: The patient appears in no acute distress, alert, awake, non-toxic, well cp developed, well nourished, uncomfortable, 18:05 Head/Face: Normocephalic, atraumatic. cp 18:05 Eyes: Periorbital structures: appear normal, Pupils: equal, round, and reactive to light and accomodation, Extraocular movements: intact throughout, Conjunctiva: mild injection of left conjunctiva, clear drainage. Corneas: abrasion, that is small, on the left, central location, foreign body, is not appreciated, a fluorescein strip employed to appreciate the findings, Sclera: no appreciated abnormality, Lids and lashes: appear normal, bilaterally, 18:05 ENT: External ear(s): are unremarkable, Ear canal(s): are normal, clear, TM's: dullness, bilaterally, Nose: is normal, Mouth: Lips: moist, Oral mucosa: pink and intact, moist, Posterior pharynx: Airway: no evidence of obstruction, patent, swelling, is not appreciated, erythema, is not appreciated, exudate, is not appreciated, 18:05 Neck: ROM/movement: is normal, is supple, without pain, no range of motions limitations, Lymph nodes: no appreciated lymphadenopathy, 18:05 Chest/axilla: Inspection: normal, 18:05 Cardiovascular: Rate: normal, Rhythm: regular, 18:05 Respiratory: the patient does not display signs of respiratory distress, Respirations: normal, no use of accessory muscles, no retractions, labored breathing, is not present, Breath sounds: are clear throughout, no decreased breath sounds, no stridor, no wheezing, 18:05 Skin: no rash present. Vital Signs: 17:30 BP 121 / 87; Pulse 91; Resp 15; Temp 97.5; Pulse Ox 100% ; ko1 Visual Acuity: 18:05 Left Eye Visual acuity 20/200, ; Right Eye Visual acuity 20/200, ; Both Eyes Visual as6 acuity 20/200; Without Lenses; MDM: 17:39 Patient medically screened. cp 18:40 Data reviewed: vital signs, nurses notes, and as a result, I will discharge patient. cp 18:40 Differential diagnosis: Corneal abrasion of Corneal ulcer of Foreign body in Acute cp iritis of I considered the following discharge prescriptions or medication management in the emergency department Medications were administered in the Emergency Department. See MAR. Counseling: I had a detailed discussion with the patient and/or guardian regarding the historical points, exam findings, and any diagnostic results supporting the discharge/admit diagnosis, the need for outpatient follow up, an opthalmologist, to return to the emergency department if symptoms worsen or persist or if there are any questions or concerns that arise at home. Response to treatment: the patient's symptoms have mildly improved after treatment, and as a result, I will discharge patient. 18:40 ED course: recommend no use of contact lenses next 10 days and f/u with eye doctor. cp 12/01 17:39 Order name: Eye Tray; Complete Time: 18:05 cp 12/01 17:39 Order name: Fluoresene Opth strip; Complete Time: 18:05 cp 12/01 17:39 Order name: Visual Acuity; Complete Time: 18:05 cp Administered Medications: 18:42 Drug: Tetracaine Ophthalmic Drops 0.5 % 1 drops Ophthalmic once Route: Ophthalmic; mb9 Site: left eye; 18:43 Follow up: Response: No adverse reaction mb9 Disposition Summary: 12/01/23 18:40 Discharge Ordered Notes: Location: Home cp Problem: new cp Symptoms: have improved cp Condition: Stable cp Diagnosis - Unspecified acute conjunctivitis, bilateral cp - Injury of conjunctiva and corneal abrasion without foreign body, left eye cp Followup: cp - With: Courtney Dennis MD - When: 2 - 3 days - Reason: Recheck today's complaints Discharge Instructions: - Discharge Summary Sheet cp - Corneal Abrasion cp - Bacterial Conjunctivitis, Adult cp Forms: - Medication Reconciliation Form cp - Thank You Letter cp - Antibiotic Education cp - Prescription Opioid Use cp - Patient Portal Instructions cp - Leadership Thank You Letter cp Prescriptions: - Ibuprofen 800 mg Oral Tablet - take 1 tablet ORAL route every 8 hours As needed take with food; 30 tablet; cp Refills: 0, Product Selection Permitted - Vigamox 0.5 % Ophthalmic Drops - instill 1 drop OPHTHALMIC route every 8 hours for 7 days; 5 milliliter; cp Refills: 0, Product Selection Permitted Signatures: Malvin Reed PA PA cp Dara Cavazos RN RN ko1 Karley Ramirez RN RN mb9 Corrections: (The following items were deleted from the chart) 17:34 17:32 Allergies: Hydrocodone-Acetaminophen; ko1 ko1 12/02 16:34 02 17:50 Associated signs and symptoms: Pertinent negatives: chills, dizziness, ear cp ache, fever, headache, runny nose, cp
--- NOTE | 2023-12-01 18:41 | ER ---
Nurse's Notes [facility] Name: Vida Hillman Age: 38 yrs Sex: Female : 1985 Arrival Date: 12/01/2023 Time: 17:08 Bed 10 Private MD: Diagnosis: Unspecified acute conjunctivitis, bilateral;Injury of conjunctiva and corneal abrasion without foreign body, left eye Presentation: 12/01 17:30 Chief complaint: Patient states: Started Nov 23, right eye swollen and red, painful. ko1 Now moving to the left. Coronavirus screen: At this time, the client does not indicate any symptoms associated with coronavirus-19. Ebola Screen: No symptoms or risks identified at this time. Initial Sepsis Screen: Does the patient meet any 2 criteria? No. Patient's initial sepsis screen is negative. Does the patient have a suspected source of infection? No. Patient's initial sepsis screen is negative. Risk Assessment: Do you want to hurt yourself or someone else? Patient reports no desire to harm self or others. Onset of symptoms is unknown. 17:30 Method Of Arrival: Ambulatory ko1 17:30 Acuity: MELLY 4 ko1 Triage Assessment: 17:32 General: Appears in no apparent distress. Behavior is calm, cooperative, appropriate ko1 for age. Pain: Complains of pain in right eye. Historical: - Allergies: 17:32 No Known Allergies; ko1 - PMHx: 17:32 Anxiety; ambien; ko1 - Immunization history:: Adult Immunizations up to date. - Social history:: Smoking status: Patient denies any tobacco usage or history of. Screenin:07 [facility] ED Fall Risk Assessment (Adult) History of falling in the last 3 months, mb9 including since admission No falls in past 3 months (0 pts) Confusion or Disorientation No (0 pts) Intoxicated or Sedated No (0 pts) Impaired Gait No (0 pts) Mobility Assist Device Used No (0 pt) Altered Elimination No (0 pt) Score/Fall Risk Level 0 - 2 = Low Risk Oriented to surroundings, Maintained a safe environment, Educated pt \T\ family on fall prevention, incl call for assistance when getting out of bed. Abuse screen: Denies threats or abuse. Nutritional screening: No deficits noted. Tuberculosis screening: No symptoms or risk factors identified. Assessment: 18:06 Pain: Complains of pain in left eye. Neuro: [place] Agitation-Sedation Scale (RASS): 0 mb9 - Alert and Calm Level of Consciousness is awake, alert, obeys commands, Oriented to person, place, time, situation, Appropriate for age. Cardiovascular: Patient's skin is warm and dry. Respiratory: Airway is patent Respiratory effort is even, unlabored, Respiratory pattern is regular, symmetrical. GI: No signs and/or symptoms were reported involving the gastrointestinal system. : No signs and/or symptoms were reported regarding the genitourinary system. EENT: erythema and swelling noted to left eye. Derm: Skin is pink, warm \T\ dry. 18:47 Reassessment: No changes from previously documented assessment. Patient and/or family mb9 updated on plan of care and expected duration. Pain level reassessed. Patient is alert, oriented x 3, equal unlabored respirations, skin warm/dry/pink. Vital Signs: 17:30 BP 121 / 87; Pulse 91; Resp 15; Temp 97.5; Pulse Ox 100% ; ko1 Visual Acuity: 18:05 Left Eye Visual acuity 20/200, ; Right Eye Visual acuity 20/200, ; Both Eyes Visual as6 acuity 20/200; Without Lenses; ED Course: 17:10 Patient arrived in ED. rg4 17:26 Malvin Reed PA is PHCP. cp 17:26 Malvin Licea MD is Attending Physician. cp 17:32 Triage completed. ko1 17:32 Arm band placed on right wrist. Patient placed in an exam room, on a stretcher, on ko1 pulse oximetry, Patient notified of wait time. 17:39 Karley Ramirez RN is Primary Nurse. mb9 18:07 Placed in gown. Bed in low position. Call light in reach. Side rails up X 1. Client mb9 placed on continuous cardiac and pulse oximetry monitoring. NIBP monitoring applied. 18:08 No provider procedures requiring assistance completed. mb9 18:39 Courtney Dennis MD is Referral Physician. cp 18:43 Patient did not have IV access during this emergency room visit. mb9 Administered Medications: 18:42 Drug: Tetracaine Ophthalmic Drops 0.5 % 1 drops Ophthalmic once Route: Ophthalmic; mb9 Site: left eye; 18:43 Follow up: Response: No adverse reaction mb9 Medication: 18:08 VIS not applicable for this client. mb9 Outcome: 18:40 Discharge ordered by . amie 18:47 Discharged to home ambulatory, mb9 18:47 Condition: stable 18:47 Discharge instructions given to patient, Instructed on discharge instructions, follow up and referral plans. Demonstrated understanding of instructions, follow-up care, medications, Prescriptions given X 2, 18:48 Patient left the ED. mb9 Signatures: Malvin Reed PA PA cp Garcia, Rubi rg4 Ananth Weiner RN RN as6 Dara Cavazos RN RN ko1 Karley Ramirez RN RN mb9 Corrections: (The following items were deleted from the chart) 17:34 17:32 Allergies: Hydrocodone-Acetaminophen; ko1 ko1
[2023-12-02 11:59] VITALS: BP 121/87; TEMP 97.5; O2SAT 100
== END ==
LOC: ER 17:08
DX: S05.02XA Injury of conjunctiva and corneal abrasion without foreign body, left eye, initial encounter (principal); H10.33 Unspecified acute conjunctivitis, bilateral

== ENCOUNTER 2024-10-03 09:29 | Emergency (ER) | payer BC, SELFPAY ==
[2024-10-03] MEDS ORDERED: IBUPROFEN 400 MG TAB ONE (10:01)
[2024-10-03] MEDS ORDERED: CODEINE 30MG/APAP 300MG TAB ONE (10:02)
--- NOTE | 2024-10-03 10:14 | ER ---
Nurse's Notes [facility] Name: Vida Hillman Age: 39 yrs Sex: Female : 1985 Arrival Date: 10/03/2024 Time: 09:29 Bed 18 Private MD: Diagnosis: Disorder of teeth and supporting structures, unspecified Presentation: 10/03 09:40 Chief complaint: Left lower molar pain x 1 week. 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 hb Coronavirus screen: At this time, the client does not indicate any symptoms associated with coronavirus-19. Ebola Screen: No symptoms or risks identified at this time. Initial Sepsis Screen: Does the patient meet any 2 criteria? No. Patient's initial sepsis screen is negative. Does the patient have a suspected source of infection? No. Patient's initial sepsis screen is negative. Risk Assessment: Do you want to hurt yourself or someone else? Patient reports no desire to harm self or others. Onset of symptoms was September 26, 2024. 09:40 Method Of Arrival: Ambulatory hb 09:40 Acuity: MELLY 4 hb Historical: - Allergies: 09:48 HYDROCODONE; hb - PMHx: 09:48 Anxiety; ambien; hb - PSHx: 09:48 section; Total abdominal hysterectomy; hb - Immunization history:: Adult Immunizations up to date. - Infectious Disease History:: Denies. - Social history:: Smoking status: Patient denies any tobacco usage or history of. Screenin:00 [facility] ED Fall Risk Assessment (Adult) History of falling in the last 3 months, aa5 including since admission No falls in past 3 months (0 pts) Confusion or Disorientation No (0 pts) Intoxicated or Sedated No (0 pts) Impaired Gait No (0 pts) Mobility Assist Device Used No (0 pt) Altered Elimination No (0 pt) Score/Fall Risk Level 0 - 2 = Low Risk Oriented to surroundings, Maintained a safe environment, Educated pt \T\ family on fall prevention, incl call for assistance when getting out of bed. Abuse screen: Denies threats or abuse. Nutritional screening: No deficits noted. Tuberculosis screening: No symptoms or risk factors identified. Assessment: 10:00 General: Appears uncomfortable, Behavior is calm, cooperative. Pain: Complains of pain aa5 in left lower molar. Neuro: Level of Consciousness is awake, alert, obeys commands, Oriented to person, place, time, situation. Cardiovascular: Patient's skin is warm and dry. Respiratory: Airway is patent Respiratory effort is even, unlabored, Respiratory pattern is regular, symmetrical. GI: No signs and/or symptoms were reported involving the gastrointestinal system. : No signs and/or symptoms were reported regarding the genitourinary system. EENT: Reports dental pain . Derm: Skin is pink, warm \T\ dry. Musculoskeletal: Range of motion: intact in all extremities. 10:20 Reassessment: Patient is alert, oriented x 3, equal unlabored respirations, skin aa5 warm/dry/pink. Vital Signs: 09:40 BP 132 / 87; Pulse 72; Resp 16; Temp 98.3(O); Pulse Ox 99% on R/A; Weight 71.21 kg; hb Height 5 ft. 4 in. ; Pain 9/10; 10:18 BP 131 / 79; Pulse 70; Resp 18 S; Pulse Ox 99% on R/A; aa5 09:40 Body Mass Index 26.95 (71.21 kg, 162.56 cm) hb 09:40 Pain Scale: Adult hb ED Course: 09:32 Patient arrived in ED. mg5 09:37 Malvin Reed PA is PHCP. cp 09:37 Dorothy Wilkinson MD is Attending Physician. cp 09:48 Sara Guillory, BILLY is Primary Nurse. aa5 09:48 Triage completed. hb 09:48 Arm band placed on. hb 10:00 Patient has correct armband on for positive identification. Bed in low position. Call aa5 light in reach. Side rails up X 1. Pulse ox on. NIBP on. 10:20 No provider procedures requiring assistance completed. Patient did not have IV access aa5 during this emergency room visit. Administered Medications: 10:00 Drug: Ibuprofen PO 800 mg PO once Route: PO; aa5 10:20 Follow up: Response: No adverse reaction aa5 10:00 Drug: Acetaminophen-Codeine PO (300 mg-30 mg) 2 tabs PO once; RASS on ADMIN: Combtv4, aa5 Very Agttd3, Agttd2, Rstlss1, AlertClm0, Drwsy-1, Lt Sdtn-2, Mod Sdtn-3, Dp Sdtn-4, UnArsble-5 Route: PO; 10:20 Follow up: Response: No adverse reaction aa5 10:00 Drug: Clindamycin PO 300 mg PO once Route: PO; aa5 10:20 Follow up: Response: No adverse reaction aa5 Medication: 10:00 VIS not applicable for this client. aa5 Outcome: 10:14 Discharge ordered by MD. cp 10:20 Discharged to home ambulatory, aa5 10:20 Condition: stable 10:20 Discharge instructions given to patient, Instructed on discharge instructions, follow up and referral plans. medication usage, Demonstrated understanding of instructions, follow-up care, medications, Prescriptions given X 2, 10:23 Patient left the ED. aa5 Signatures: Sara Guillory, RN RN aa5 Malvin Reed PA PA cp Baxter, Heather, RN RN Claire Blair mg5
--- NOTE | 2024-10-03 10:14 | EDPHYS ---
Physician Documentation [facility] Name: Vida Hillman Age: 39 yrs Sex: Female : 1985 Arrival Date: 10/03/2024 Time: 09:29 Bed 18 Private MD: ED Physician Dorothy Wilkinson HPI: 10/03 09:50 This 39 yrs old Female presents to ER via Ambulatory with complaints of cp Toothache. 09:50 The patient presents with pain. The problem is located in the upper left cuspid (#11) cp and upper left second molar (#15). Onset: The symptoms/episode began/occurred 1 week(s) ago. Duration: The symptoms are continuous, and are steadily getting worse. Associated signs and symptoms: Pertinent negatives: chills, fever, swelling, facial, vomiting. Severity of symptoms: in the emergency department the symptoms are unchanged, despite home interventions. Historical: - Allergies: 09:48 HYDROCODONE; hb - PMHx: 09:48 Anxiety; ambien; hb - PSHx: 09:48 section; Total abdominal hysterectomy; hb - Immunization history:: Adult Immunizations up to date. - Infectious Disease History:: Denies. - Social history:: Smoking status: Patient denies any tobacco usage or history of. ROS: 09:55 ENT: Positive for dental pain, cp 09:55 Eyes: Negative for injury, pain, redness, and discharge, cp 09:55 Constitutional: Negative for body aches, chills, fever, poor PO intake, 09:55 Cardiovascular: Negative for chest pain, palpitations, 09:55 Respiratory: Negative for cough, shortness of breath, wheezing, 09:55 Abdomen/GI: Negative for abdominal pain, vomiting, diarrhea, constipation, 09:55 Neuro: Negative for altered mental status, dizziness, headache, weakness, 09:55 All other systems are negative, Exam: 09:59 Head/Face: Normocephalic, atraumatic. cp 09:59 Constitutional: The patient appears in no acute distress, alert, awake, non-toxic, well developed, well nourished, uncomfortable, 09:59 Eyes: Periorbital structures: appear normal, Conjunctiva: normal, no exudate, no injection, Sclera: no appreciated abnormality, Lids and lashes: appear normal, bilaterally, 09:59 ENT: External ear(s): are unremarkable, Ear canal(s): are normal, clear, TM's: dullness, bilaterally, Nose: is normal, Mouth: Lips: moist, Oral mucosa: pink and intact, moist, Posterior pharynx: Airway: no evidence of obstruction, patent, Tonsils: are normal in appearance, erythema, is not appreciated, exudate, is not appreciated, Dental exam: abscess, is not appreciated, fractured teeth are noted, specifically the upper left cuspid (#11) and upper left second molar (#15), gum swelling, not appreciated, pain, that is moderate, specifically in the upper left cuspid (#11) and upper left second molar (#15), Voice: is normal, 09:59 Neck: ROM/movement: Meningeal signs: are not present, nuchal rigidity, is not appreciated, Lymph nodes: no appreciated lymphadenopathy, 09:59 Chest/axilla: Inspection: normal, 09:59 Cardiovascular: Rate: normal, Rhythm: regular, 09:59 Respiratory: the patient does not display signs of respiratory distress, Respirations: normal, no use of accessory muscles, no retractions, labored breathing, is not present, Breath sounds: are clear throughout, no decreased breath sounds, no stridor, no wheezing, 10:00 Abdomen/GI: Exam negative for discomfort, distension, guarding, Inspection: abdomen cp appears normal, Vital Signs: 09:40 BP 132 / 87; Pulse 72; Resp 16; Temp 98.3(O); Pulse Ox 99% on R/A; Weight 71.21 kg; hb Height 5 ft. 4 in. ; Pain 9/10; 10:18 BP 131 / 79; Pulse 70; Resp 18 S; Pulse Ox 99% on R/A; aa5 09:40 Body Mass Index 26.95 (71.21 kg, 162.56 cm) hb 09:40 Pain Scale: Adult hb MDM: 09:41 Medical Screening Exam initiated cp 09:55 Differential diagnosis: dental caries, dental abscess, pericoronitis, sepsis. cp Administered Medications: 10:00 Drug: Ibuprofen PO 800 mg PO once Route: PO; aa5 10:20 Follow up: Response: No adverse reaction aa5 10:00 Drug: Acetaminophen-Codeine PO (300 mg-30 mg) 2 tabs PO once; RASS on ADMIN: Combtv4, aa5 Very Agttd3, Agttd2, Rstlss1, AlertClm0, Drwsy-1, Lt Sdtn-2, Mod Sdtn-3, Dp Sdtn-4, UnArsble-5 Route: PO; 10:20 Follow up: Response: No adverse reaction aa5 10:00 Drug: Clindamycin PO 300 mg PO once Route: PO; aa5 10:20 Follow up: Response: No adverse reaction aa5 Disposition Summary: 10/03/24 10:14 Discharge Ordered Notes: Location: Home cp Problem: an ongoing problem cp Symptoms: have improved cp Condition: Stable cp Diagnosis - Disorder of teeth and supporting structures, unspecified cp Followup: cp - With: Private Physician - When: 2 - 3 days - Reason: Recheck today's complaints Discharge Instructions: - Discharge Summary Sheet cp - Dental Pain cp Forms: - Medication Reconciliation Form cp - Antibiotic Education cp - Prescription Opioid Use cp - Patient Portal Instructions cp - Leadership Thank You Letter cp Prescriptions: - Clindamycin HCl 300 mg Oral Capsule - take 1 capsule ORAL route every 6 hours for 10 days; 40 capsule; Refills: 0, cp Product Selection Permitted - Diclofenac Sodium 75 mg Oral Tablet Sustained Release - take 1 tablet ORAL route 2 times per day; 30 tablet; Refills: 0, Product cp Selection Permitted Signatures: Sara Guillory, RN RN aa5 Malvin Reed PA PA cp Izabela Santos, RN RN hb
[2024-10-03 13:29] VITALS: BP 132/87; TEMP 98.3; O2SAT 99
== END 2024-10-03 10:23 | disposition home or self-care (01) ==
LOC: ER 09:29
DX: K08.89 Other specified disorders of teeth and supporting structures (principal)
CPT/HCPCS: 99283

== ENCOUNTER 2025-02-11 20:29 | Emergency (ER) | payer OTHER ==
--- OUTSIDE RECORDS SUMMARY | 2025-02-11 20:35 | XMS REPORT | Continuity of Care Document ---
Author Name Unknown Address [address] [facility]. [address] [place] [address] [facility] Address [address] 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 Name Role Phone Kentrell Nicole Primary Care Physician [phone] Anel Srivastava Attending Clinician [phone] Rosie Beaver Attending Clinician + Lab, Ang-chp Attending Clinician Unavailable PÉREZ YEPEZ Attending Clinician Unavailable Pérez Johnson Attending Clinician [phone] Doctor Unassigned, [place] Attending Clinician U JB Suero Attending Clinician Unavailable PÉREZ YEPEZ Admitting Clinician Unavailable Payers Payer Name Policy Type Policy Number Effective Date Expirati on Date Source [facility] [employer]ICA[facility] [id number] 2015 00:00:00 Problems Condition Name Condition Details Condition Category Status Onset Date Resolution Date Last Treatment Date Treating Clinician Comments Source Encounter for other general counseling or advice on contracept ion Encounter for other general counseling or advice on contracept ion Disease Active 2015-10 00:00: 00 [facility] History of hysterecto my History of hysterecto my Disease Active 2015-10 00:00: 00 [facility] Hair loss Hair loss Disease Active 2015-10 00:00: 00 [facility] Gestationa l diabetes mellitus, antepartum Gestationa l diabetes mellitus, antepartum Disease Resolve d 04-11 00:00: 00 2024-10-01 00:00:00 2024-10-01 10:43:30 [facility] Routine follow-up Routine follow-up Disease Resolve d 04-11 00:00: 00 2016-08-02 00:00:00 2016-08-02 14:53:24 [facility] Anemia of mother in , condition Anemia of mother in , condition Disease Resolve d 04-11 00:00: 00 2016-08-02 00:00:00 2016-08-02 14:52:49 [facility] Cellulitis Cellulitis Disease Resolve d 03-28 00:00: 00 2016-04-11 00:00:00 2016-04-11 16:14:07 [facility] Bladder injury, closed, subsequent encounter Bladder injury, closed, subsequent encounter Disease Resolve d 03-28 00:00: 00 2016-04-11 00:00:00 2016-04-11 16:14:10 [facility] S/P section S/P section Disease Resolve d 03-28 00:00: 00 2016-04-11 00:00:00 2016-04-11 16:14:11 [facility] S/P hysterecto my S/P hysterecto my Disease Resolve d 03-28 00:00: 00 2016-04-11 00:00:00 2016-04-11 16:14:12 [facility] Supervisio n of high-risk with insufficie nt care, unspecifie d trimester Supervisio n of high-risk with insufficie nt care, unspecifie d trimester Disease Resolve d 11-07 00:00: 00 2016-04-11 00:00:00 2016-04-11 16:14:16 [facility] Multiparit y Multiparit y Disease Resolve d 0 1-12 00:00: 00 2016-04-11 00:00:00 2016-04-11 16:14:06 [facility] Previous delivery, antepartum condition or complicati on Previous delivery, antepartum condition or complicati on Disease Resolve d 0 1-12 00:00: 00 2016-04-11 00:00:00 2022-05-12 00:39:07 [facility] Routine follow-up Routine follow-up Disease Resolve d 0 5-31 00:00: 00 2016-03-28 00:00:00 2016-03-28 18:22:30 [facility] Status post emergency hysterecto my Status post emergency hysterecto my Disease Resolve d 0 527 00:00: 00 2016-03-28 00:00:00 2022-05-12 00:40:47 [facility] Disease Resolve d 0 5-24 00:00: 00 2016-03-28 00:00:00 2016-03-28 18:22:48 [facility] A2DM A2DM Disease Resolve d 427 00:00: 00 2016-03-28 00:00:00 2016-03-28 18:22:49 [facility] Placenta previa Placenta previa Disease Resolve d 4-17 00:00: 00 2016-03-28 00:00:00 2016-03-28 18:22:20 [facility] Vaginal bleeding in , third trimester Vaginal bleeding in , third trimester Disease Resolve d 0 4-17 00:00: 00 2016-03-28 00:00:00 2016-03-28 18:22:26 [facility] Tubal ligation status Tubal ligation status Disease Resolve d 0 4-05 00:00: 00 2016-03-28 00:00:00 2016-03-28 18:22:28 [facility] Placenta previa without hemorrhage , antepartum Placenta previa without hemorrhage , antepartum Disease Resolve d 0 2-12 00:00: 00 2016-03-28 00:00:00 2016-03-28 18:22:50 [facility] Obesity complicati ng Obesity complicati ng Disease Resolve d 1-12 00:00: 00 2016-03-28 00:00:00 2016-03-28 18:22:53 [facility] History of gestationa l diabetes History of gestationa l diabetes Disease Resolve d 1-12 00:00: 00 2016-03-28 00:00:00 2016-03-28 18:22:51 [facility] 30 weeks gestation of 30 weeks gestation of Disease Resolve d 4-21 00:00: 00 2016-03-05 00:00:00 2016-03-05 16:35:20 [facility] Pain of round ligament complicati ng , antepartum Pain of round ligament complicati ng , antepartum Disease Resolve d 3-22 00:00: 00 2016-03-05 00:00:00 2016-03-05 16:35:12 [facility] History of threatened History of threatened Disease Resolve d 112 00:00: 00 2016-03-05 00:00:00 2016-03-05 16:35:06 [facility] Allergies, Adverse Reactions, Alerts Allergy Name Allergy Type Status Severity Reaction(s) Onset Date Inactive Date Treating Clinician Comments Source NO KNOWN ALLERGIE S Drug Class Active [facility] Social History Social Habit Start Date Stop Date Quantity Comments Source Exposure to SARS-CoV-2 (event) Not sure [facility] Alcoholic beverage intake 2024-10-05 00:00:00 2024-10-05 00:00:00 0 /d [facility] History of Social function 2024-10-05 00:00:00 2024-10-05 00:00:00 [facility] Alcohol intake 2024-02-10 00:00:00 2024-02-10 00:00:00 0 /d [facility] Tobacco use and exposure 2015-11-07 00:00:00 2015-11-07 00:00:00 Smokeless tobacco non-user [facility] Sex assigned at 1985 00:00:00 1985 00:00:00 [facility] Smoking Status Start Date Stop Date Source Never smoked tobacco [facility] Medications Ordered Medication Name Filled Medication Name Start Date Stop Date Current Medication? Ordering Clinician Indication Dosage Frequency Signature (SIG) Comments Components Source IBUPROFEN ORAL 2023-10 10:28: 33 10-01 00:00 :00 No 800mg Take 800 mg by mouth. [facility] sulfamethox azole-trime thoprim (BACTRIM DS) 800-160 mg per tablet 2023-10 00:00: 00 Yes [id number] 1{tbl} Take 1 tablet by mouth in the morning and 1 tablet in the evening. [facility] fluconazole 150 mg tablet 2023-10 00:00: 00 Yes [id number] 150mg Take 1 tablet by mouth every 3 (three) days. [facility] Nitrofurant oin&Nit. Macrocryst (MACROBID) 100 mg capsule - 00:00: 00 02-23 04:59 :00 No [id number] 100mg Take 1 capsule by mouth in the morning and 1 capsule in the evening. Do all this for 10 days. [facility] terconazole 80 mg vaginal suppository 4-11 00:00: 00 02-08 04:59 :00 No [id number] 80mg Insert 1 Suppositor y into vagina at bedtime for 3 days. [facility] IBUPROFEN ORAL 01-26 13:08: 29 Yes 800mg Take 800 mg by mouth. [facility] zolpidem 10 mg tablet -18 00:00: 00 10-01 00:00 :00 No TAKE ONE (1) TABLET(S) BY MOUTH AT BEDTIME NEEDED FOR INSOMNIA. [facility] topiramate 50 mg tablet -15 00:00: 00 Yes 50mg Take 1 tablet by mouth in the morning. [facility] ALPRAZolam 1 mg tablet 01-08 00:00: 00 10-01 00:00 :00 No TAKE ONE (1) TABLET(S) BY MOUTH THREE TIMES A DAY NEEDED FOR ANXIETY. [facility] phentermine 37.5 mg tablet 01-08 00:00: 00 10-01 00:00 :00 No 37.5mg Take 1 tablet by mouth in the morning. [facility] dicyclomine (BENTYL) injection 20 mg 01-16 13:00: 00 Yes 20mg 20 mg, Intramuscu lar, QID, First dose on Fri01/16/22 at 0800, Until Discontinu ed, Routine [facility] ketorolac (TORADOL) injection 30 mg 01-16 09:30: 00 01-16 08:23 :00 No 30mg 30 mg, Slow IV Push, ONCE, 1 dose, On Fri01/16/22 at 0430, Routine
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 Restricted medication : BIANCA MAI [facility] iopamidol (ISOVUE 370-500 mL) injection 120 mL 01-16 08:30: 00 01-16 07:24 :00 No [id number] 120mL 120 mL, Intravenou s, ONCE, 1 dose, On Fri01/16/22 at 0330, Routine [facility] ondansetron (ZOFRAN (PF)) injection 4 mg 01-16 08:00: 00 01-16 06:52 :00 No 4mg 4 mg, Slow IV Push, ONCE, 1 dose, On Fri01/16/22 at 0300, TRACIE [facility] NaCl 0.9% (NS) IV infusion 1,000 mL 01-16 07:45: 00 01-16 08:21 :00 No 1000mL at 999 mL/hr, Intravenou s, ONCE, 1 dose, On Fri01/16/22 at 0245, TRACIE [facility] dicyclomine 20 mg tablet 01-16 00:00: 00 Yes [id number] 20mg Take 1 tablet by mouth every 6 (six) hours as needed for Abdominal pain. [facility] ibuprofen 800 mg tablet 01-16 00:00: 00 Yes [id number] 800mg Take 1 tablet by mouth every 8 (eight) hours as needed for Pain (scale 4-6). [facility] ondansetron (ZOFRAN) 4 mg tablet 01-16 00:00: 00 Yes [id number] 4mg Take 1 tablet by mouth every 8 (eight) hours as needed for Nausea and Vomiting (N/V). [facility] IBUPROFEN ORAL 2015-10 0 15:10: 46 Yes 800mg Take 800 mg by mouth. [facility] Immunizations Ordered Immunization Name Filled Immunization Name Date Status Comments Source Influenza Virus Vaccine 2023-12-23 00:00:00 Completed [facility] TDAP 2016-01-30 00:00:00 Completed [facility] TDAP 2016-01-30 00:00:00 Completed [facility] TDAP 2016-01-30 00:00:00 Completed [facility] TDAP Unknown Completed [facility] Influenza Virus Vaccine Unknown Completed [facility] TDAP Unknown Completed [facility] Influenza Virus Vaccine Unknown Completed [facility] TDAP Unknown Completed [facility] Influenza Virus Vaccine Unknown Completed [facility] TDAP Unknown Completed [facility] Influenza Virus Vaccine Unknown Completed [facility] TDAP Unknown Completed [facility] Influenza Virus Vaccine Unknown Completed [facility] TDAP Unknown Completed [facility] Influenza Virus Vaccine Unknown Completed [facility] TDAP Unknown Completed [facility] Influenza Virus Vaccine Unknown Completed [facility] Vital Signs Vital Name Observation Time Observation Value Comments S ource Systolic blood pressure 2024-10-01 16:24:00 140 mm[Hg] [facility] Diastolic blood pressure 2024-10-01 16:24:00 80 mm[Hg] [facility] Body temperature 2024-10-01 16:15:00 36.11 Cecily [facility] Respiratory rate 2024-10-01 16:15:00 18 /min [facility] Body height 2024-10-01 16:15:00 162.6 cm [facility] Body weight 2024-10-01 16:15:00 70.489 kg [facility] BMI 2024-10-01 16:15:00 26.67 kg/m2 [facility] Heart rate 2024-10-01 16:15:00 89 /min [facility] Systolic blood pressure 2024-01-27 18:00:00 131 mm[Hg] Randle [facility] Diastolic blood pressure 2024-01-27 18:00:00 77 mm[Hg] [facility] Heart rate 2024-01-27 18:00:00 87 /min [facility] Body temperature 2024-01-27 18:00:00 36.06 Cecily [facility] Respiratory rate 2024-01-27 18:00:00 18 /min [facility] Body height 2024-01-27 18:00:00 162.6 cm [facility] Body weight 2024-01-27 18:00:00 71.305 kg [facility] BMI 2024-01-27 18:00:00 26.98 kg/m2 [facility] Systolic blood pressure 2022-01-16 06:40:00 116 mm[Hg] Randle o [facility] Diastolic blood pressure 2022-01-16 06:40:00 82 mm[Hg] [facility] Heart rate 2022-01-16 06:40:00 74 /min [facility] Body temperature 2022-01-16 06:40:00 36.22 Cecily [facility] Respiratory rate 2022-01-16 06:40:00 18 /min [facility] Body height 2022-01-16 06:40:00 162.6 cm [facility] Oxygen saturation in Arterial blood by Pulse oximetry 2022-01-16 06:40:00 96 /min Randle o [facility] Procedures Procedure Date / Time Performed Performing Clinicia n Source POCT URINALYSIS W/O SPECIFIC GRAVITY 2024-10-01 18:25:00 Anel Brandt [facility] URINE CULTURE 2024-10-01 18:22:00 Anel Brandt [facility] GC & CHLAMYDIA AMPLIFIED ASSAY 2024-10-01 18:22:00 Anel Brandt [facility] GALV ONLY - VAGINAL PATHOGENS BY NUCLEIC ACID TESTING 2024-10-01 18:22:00 Anel Brandt [facility] URINALYSIS 2022-01-16 07:41:00 Bianca Mai [facility] CT ABDOMEN PELVIS W CONTRAST 2022-01-16 07:26:26 Pérez Yepez [facility] LIPASE 2022-01-16 06:42:00 Bianca Mai [facility] COMP. METABOLIC PANEL (29690) 2022-01-16 06:42:00 Bianca Mai [facility] CBC WITH DIFF 2022-01-16 06:42:00 Bianca Mai [facility] NOTICE OF PRIVACY PRACTICES 2022-01-16 06:32:41 Doctor Unassigned, [place] [facility] CONSENT/REFUSAL FOR DIAGNOSIS AND TREATMENT 2022-01-16 06:32:23 Doctor Unassigned, [place] [facility] Encounters Start Date/Time End Date/Time Encounter Type Admission Type Attending Clinicians Care Facility Care Department Encounter ID Source 2024-10-01 10:15:00 2024-10-01 13:38:00 Office Visit Anel Brandt [facility] BIOSTATISTICS PROFESSOR [facility] 1..840.114 350.1.13.10 4.2.7.2.686 [id number] [facility] 2024-02-12 00:00:00 2024-03-20 18:12:09 Patient Secure Msg Rosie Arreola [facility] BIOSTATISTICS PROFESSOR [facility]ILD [facility] 1..840.114 350.1.13.10 4.2.7.2.686 [id number] [facility] 2024-02-13 00:00:00 2024-02-13 00:00:00 Telephone oRsie Arreola [facility] BIOSTATISTICS PROFESSOR [facility] CHILD [facility] 1.2.840.114 350.1.13.10 4.2.7.2.686 [id number] [facility] 2024-02-10 07:03:16 2024-02-10 23:59:00 Hospital Encounter Rosie Arreola [facility] 1.2.840.114 350.1.13.10 4.2.7.2.686 [id number] [facility] 2024-02-10 10:00:00 2024-02-10 10:03:02 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 Lab, SergeRmchRosie Cartwright [facility] BIOSTATISTICS PROFESSOR [facility] 1.2.840.114 350.1.13.10 4.2.7.2.686 [id number] [facility] 2024-02-05 00:00:00 2024-02-05 00:00:00 Telephone Rosie Arreola [facility] BIOSTATISTICS PROFESSOR [facility] 1.2.840.114 350.1.13.10 4.2.7.2.686 [id number] [facility] 2024-02-05 00:00:00 2024-02-05 00:00:00 Telephone Rosie Arreola [facility] BIOSTATISTICS PROFESSOR [facility] 1.2.840.114 350.1.13.10 4.2.7.2.686 [id number] [facility] 2024-01-27 13:00:00 2024-01-27 13:33:39 Office Visit Rosie Arreola [facility] BIOSTATISTICS PROFESSOR [facility]ILD [facility] 1.2.840.114 350.1.13.10 4.2.7.2.686 [id number] [facility] 2022-01-16 01:36:00 2022-01-16 03:32:00 Emergency X PÉREZ YEPEZ [facility] ERT [id number] [facility] 2022-01-16 01:36:00 2022-01-16 03:32:00 Emergency Pérez Yepez S [facility] 1.2.840.114 350.1.13.10 4.2.7.2.686 [id number] [facility] 2022-01-16 00:00:00 2022-01-16 00:00:00 Orders Only Doctor Unassigned, [place] [facility] 1.2.840.114 350.1.13.10 4.2.7.2.686 [id number] [facility] 2017-08-16 11:00:00 2017-08-16 11:00:00 Outpatient [facility] [id number] [facility] Results Test Description Test Time Test Comments Results Result Co mments Source General acute hospital with [id number] 07:02:42* Test Item Value Reference Range Interpretation Comme nts WBC (test code = 6690-2) See_Comment [Automated [employer] ge] The system which generated this result transmitted reference range: 4.30 - 11.10 10*3/?L. The reference range was not used to interpret this result as normal/abnormal. RBC (test code = 789-8) See_Comment [Automated [employer]] The system which generated this result transmitted reference range: 3.93 - 5.25 10*6/?L. The reference range was not used to interpret this result as normal/abnormal. HGB (test code = 718-7) 13.1 g/dL 11.6-15.0 HCT (test code = 4544-3) 39.5 % 35.7-45.2 MCV (test code = 787-2) 88.4 fL 80.6-95.5 MCH (test code = 785-6) 29.3 pg 25.9-32.8 MCHC (test code = 786-4) 33.2 g/dL 31.6-35.1 RDW-SD (test code = 03896-1) 39.6 fL 39.0-49.9 RDW-CV (test code = 788-0) 12.2 % 12.0-15.5 PLT (test code = 777-3) See_Comment [Automated messa ge] The system which generated this result transmitted reference range: 166 - 358 10*3/?L. The reference range was not used to interpret this result as normal/abnormal. MPV (test code = 75868-6) 9.3 fL 9.5-12.9 L NRBC/100 WBC (test code = 9220121709) See_Comment [Automated [employer] ssage] The system which generated this result transmitted reference range: 0.0 - 10.0 /100 WBCs. The reference range was not used to interpret this result as normal/abnormal. NRBC x10^3 (test code = 1907977065) <0.01 See_Comment [Automated messa ge] The system which generated this result transmitted reference range: 10*3/?L. The reference range was not used to interpret this result as normal/abnormal. GRAN MAT (NEUT) % (test code = 770-8) 49.8 % IMM GRAN % (test code = 4997967161) 0.70 % LYMPH % (test code = 736-9) 42.6 % MONO % (test code = 5905-5) 4.7 % EOS % (test code = 713-8) 1.5 % BASO % (test code = 706-2) 0.7 % GRAN MAT x10^3(ANC) (test code = 2125655767) 2.97 10*3/uL 1.88-7.09 IMM GRAN x10^3 (test code = 6011839497) 0.04 10*3/uL 0.00-0.06 LYMPH x10^3 (test code = 731-0) 2.54 10*3/uL 1.32-3.29 MONO x10^3 (test code = 742-7) 0.28 10*3/uL 0.33-0.92 L EOS x10^3 (test code = 711-2) 0.09 10*3/uL 0.03-0.39 BASO x10^3 (test code = 704-7) 0.04 10*3/uL 0.01-0.07 Lab Interpretation (test code = 30261-9) [facility]normal [facility] [id number] 07:01:00* Test Item Value Reference Range Interpretation Comme nts NA (test code = 5743659701) 138 mmol/L 135-145 K (test code = 1058311846) 4.0 mmol/L 3.5-5.0 CL (test code = 7094883714) 102 mmol/L 98-108 CO2 TOTAL (test code = 6327430984) 25 mmol/L 23-31 AGAP (test code = 1080286955) 2-16 BUN (test code = 0181015439) 10 mg/dL 7-23 GLUCOSE (test code = 5530134203) 91 mg/dL 70-110 CREATININE (test code = 3381749533) 0.43 mg/dL 0.50-1.04 L TOTAL BILI (test code = 2308660226) 0.5 mg/dL 0.1-1.1 CALCIUM (test code = 4257555599) 9.2 mg/dL 8.6-10.6 T PROTEIN (test code = 3648455343) 7.6 g/dL 6.3-8.2 ALBUMIN (test code = 0292936107) 4.6 g/dL 3.5-5.0 ALK PHOS (test code = 5222215669) 75 U/L 34-122 ALTv (test code = 1742-6) 99 U/L 5-35 H AST(SGOT) (test code = 8328670097) 55 U/L 13-40 H eGFR (test code = 1649510036) mL/min/1.73m2 JULIAN (test code = JULIAN) Association [...] imaging tests). Lab Interpretation (test code = 72305-1) Abnormal [facility] [id number] 07:01:00* Test Item Value Reference Range Interpretation Comme nts LIPASE (test code = 3748147786) 71 U/L 0-220 Lab Interpretation (test cod e = 00088-4) Normal [facility] Notes Date/Time Note Provider Source 2024-02-13 16:19:37 Called patient, notified patient positive for UTI. Educated patient on antibiotics, good perineal hygiene, and increasing fluids. Pt verbalized understanding. DAVID Gonzalez RN 02/13/2024 4:19 PM T [facility] [employer] 2024-02-13 16:09:26 Please notify the patient of UTI, meds have been sent to the pharmacy. Please advise the patient on good perineal hygiene, drinking plenty of water, and completing the entire course of treatment. ELIZABETH Coates 02/13[facility]2024 4[facility] 08:43:34 Patient informed of recommendations, stated she does not want to do suppository and will not take it since she is not having symptoms at this time. Esther Simon LVN [facility] 2024-02-06 08:42:33 See other encounter. Esther Simon COPY HOLDER [facility] 2024-02-05 17:26:05 Vida Hillman is a 38 year old female Patient returning call to david in the clinic regarding results. Please advise. [phone] (home) Katheryn Pandey [facility] 2024-02-05 16:32:48 2nd attempt. No answer. Left vm. David Gonzalez RN 02/05/24 4:32 PM [facility] 2024-02-05 13:06:18 Called pt, no answer. Left vm. David Gonzalez RN 02/05/24 1:06 PM [facility] 2024-02-05 12:09:26 Please advise patient that according to her chart she is currently taking alprazolam and it interact with diflucan that is why the vag sup was sent ELIZABETH Coates 02/05/2024 12:10 PM [facility] 2024-02-05 11:37:14 Patient informed medication sent to pharmacy. Patient stated she did not want a vaginal suppository and would like oral medication. Informed will route to provider to see if oral medication can sent. Esther Simon [facility] 2024-02-05 11:23:07 Meds sent to pharmacy on file ELIZABETH Coates 02/05/2024 11:23 AM T [facility] 2024-02-05 10:58:07 Patient informed of results for 01/27/2024. Pt stated she is no longer having symptoms of a yeast infection but would still like treatment. Informed will route to provider for orders. Pt stated she does have an odor to her urine and would like to have labs done for uti. Lab appt made on 02/09 per her request. Esther Simon [facility] 2024-02-05 10:48:12 Copied from [facility] #[id number]. Topic: Clinical - Results >> Feb 05, 2024 10:47 AM Patient Complex Case Manager wrote: Vida Hillman is a 38 year old female requesting call back for results clarification. Please call [phone] Caitie Mason [facility] Hospital"
[2025-02-11 21:33] LABS: Absolute Basophils 0.1 K/uL (0-0.5); Absolute Lymphocytes (CBC) 1.5 K/uL (0.7-4.9); Absolute Monocytes 0.5 K/uL (0.1-1.3); Absolute Neutrophil 2.8 K/uL (1.8-8.0); Basophils % 1.5 % (0-1.3); Eosinophils % 0.7 % (0-4.4); Hematocrit 42.1 % (36.0-45.0); Hemoglobin 14.5 g/dL (12.0-15.0); MCH 29.7 pg (27.0-35.0); MCHC 34.4 g/dL (32.0-36.0); MCV 86.3 fL (80-100); MPV 8.8 fL (7.6-11.3); Monocytes % 10.3 % (3.3-12.3); Neutrophils % 57.5 % (41.7-73.7); Nucleated Red Blood Cells % 0.2 % (0-0); Platelets 220 thou/uL (152-406); RBC Red Blood Cell Count 4.88 M/uL (3.86-4.86); Red Cell Distribution Width 13.2 % (12.1-15.2); Specific Gravity 1.023 (1.005-1.030)
[2025-02-11 21:37] LABS: PT Prothrombin Time 11.7 SECONDS (10-13.0); PTT, Activated Partial Thromb 33.1 SECONDS (27.2-37.4); Protime INR 1.03
[2025-02-11] MEDS ORDERED: LIDOCAINE 1% 20 ML MDV ONE (21:37)
[2025-02-11] MEDS ORDERED: IBUPROFEN 400 MG TAB ONE (21:37)
[2025-02-11] MEDS ORDERED: TDAP (DIPHTH,PERTUSS(ACELL),TET VAC) 0.5 ML VIAL IMVAC ONE (21:37)
[2025-02-11] MEDS ORDERED: ACETAMINOPHEN 500 MG TAB ONE (21:37)
[2025-02-11 21:43] LABS: Specific Gravity 1.023 (1.005-1.030); Sqamous Epithelial <5 /HPF (None Seen); Urine Bacteria 20-50 /HPF (<20); Urine Bilirubin NEGATIVE (Negative); Urine Blood Trace (Negative); Urine Clarity Extremely Turbid (Clear); Urine Color Yellow (Yellow); Urine Culture Reflex Order NOT NEEDED; Urine Glucose NEGATIVE (Negative); Urine Ketones NEGATIVE (Negative); Urine Microscopic Reflex YN ORDER UMIC; Urine Mucus 3+ /HPF (None Seen); Urine Nitrite NEGATIVE (Negative); Urine Protein TRACE (Negative); Urine RBC <5 /HPF (None Seen); Urine Urobilinogen 1+ (Normal); Urine WBC <5 /HPF (<5); Urine pH 5.5 (5.0-7.0)
[2025-02-11 21:47] LABS: ALT/SGPT 49 U/L (13-56); Albumin 4.1 g/dL (3.4-5.0); Alkaline Phosphatase 76 U/L (45-117); Anion Gap 7.9 mEq/L (5.0-15.0); BUN Blood Urea Nitrogen 9 mg/dL (7-18); Bicarbonate 31 mEq/L (21-32); Bilirubin Total 0.3 mg/dL (0.2-1.0); Globulin 4.3 g/dL (2.3-3.5); Glomerular Filtration Rate 112 ml/min (=/>90); Glucose Level 90 mg/dL (74-106); Protein, Total 8.4 g/dL (6.4-8.2); Sodium Level 142 mEq/L (136-145)
[2025-02-11 21:48] LABS: AST/SGOT 14 U/L (15-37); Barbiturates NEGATIVE (NEGATIVE); Benzodiazepines POSITIVE (NEGATIVE); Bilirubin Direct < 0.2 mg/dL (0-0.2); Bilirubin Indirect, Calculated 0.1 mg/dL (0.2-0.8); Cocaine NEGATIVE (NEGATIVE); METHAMPHETAM NEGATIVE (NEGATIVE); Methadone NEGATIVE (NEGATIVE); Opiates POSITIVE (NEGATIVE); Phencyclidine NEGATIVE (NEGATIVE); Potassium 3.9 mEq/L (3.5-5.1); THC Cannibis NEGATIVE (NEGATIVE)
[2025-02-11] MEDS ORDERED: LOPERAMIDE HCL 2 MG CAPSULE ONE (22:00)
[2025-02-11] MEDS ORDERED: LORAZEPAM 1 MG TABLET ONE (22:00)
--- NOTE | 2025-02-12 00:48 | ER ---
Nurse's Notes [facility] Name: Vida Hillman Age: 39 yrs Sex: Female : 1985 Arrival Date: 02/11/2025 Time: 20:29 Bed 17 Private MD: Diagnosis: Acute stress reaction, depressive disorder, suicidal ideation with plan, left forearm self-inflicted laceration Presentation: 02/11 20:29 Chief complaint: Patient states: c/o SI, lacerations to the L inner forearm superficial.al5 20:29 Coronavirus screen: At this time, the client does not indicate any symptoms associated al5 with coronavirus-19. Ebola Screen: No symptoms or risks identified at this time. Initial Sepsis Screen: Does the patient meet any 2 criteria? No. Patient's initial sepsis screen is negative. Does the patient have a suspected source of infection? No. Patient's initial sepsis screen is negative. Risk Assessment: Do you want to hurt yourself or someone else? Patient reports desire/thoughts of hurting themselves or someone else. Provider notified. Note mom recently had stroke, has been harrassed by sister in law via phone calls and voice mails. Onset of symptoms was February 11, 2025. 20:29 Method Of Arrival: Wheelchair al5 20:29 Acuity: MELLY 2 al5 Triage Assessment: 20:31 General: Appears in no apparent distress. comfortable, Behavior is cooperative, flat, al5 sad. 20:31 Pain: Complains of pain in palmar aspect of left forearm. EENT: No signs and/or al5 symptoms were reported regarding the EENT system. Neuro: Level of Consciousness is awake, alert, obeys commands, Oriented to person, place, time, situation. Cardiovascular: Capillary refill < 3 seconds Patient's skin is warm and dry. Respiratory: Airway is patent Respiratory effort is even, unlabored, Respiratory pattern is regular, symmetrical. GI: No signs and/or symptoms were reported involving the gastrointestinal system. Abdomen is flat, non-distended. : No signs and/or symptoms were reported regarding the genitourinary system. Derm: Wound noted palmar aspect of left forearm Wound is superficial lacerations to L inner forearm, minimal to no bleeding noted. Musculoskeletal: No signs and/or symptoms reported regarding the musculoskeletal system. MEDICARE BILLER: 02/12 00:02 LMP N/A - Hysterectomy, Not al5 Historical: - Allergies: 02/11 20:30 HYDROCODONE; al5 - PMHx: 20:30 Anxiety; al5 - PSHx: 20:30 section; Total abdominal hysterectomy; al5 - Immunization history:: Adult Immunizations up to date, Last tetanus immunization: unknown, not up to date, does not remember last time she had one done. - Infectious Disease History:: Denies. - Social history:: Smoking status: Patient denies any tobacco usage or history of. - Family history:: not pertinent. Screenin:34 [facility] ED Fall Risk Assessment (Adult) History of falling in the last 3 months, al5 including since admission No falls in past 3 months (0 pts) Confusion or Disorientation No (0 pts) Intoxicated or Sedated No (0 pts) Impaired Gait No (0 pts) Mobility Assist Device Used No (0 pt) Altered Elimination No (0 pt) Score/Fall Risk Level 0 - 2 = Low Risk Oriented to surroundings, Maintained a safe environment, Hourly rounding (assess needs \\T\\ fall precautionary measures) done. Abuse screen: Denies threats or abuse. Denies injuries from another. Nutritional screening: No deficits noted. Tuberculosis screening: No symptoms or risk factors identified. Assessment: 20:32 Reassessment: see triage assessment. al5 21:32 Reassessment: Patient appears in no apparent distress at this time. No changes from al5 previously documented assessment. Patient and/or family updated on plan of care and expected duration. Pain level reassessed. Patient is alert, oriented x 3, equal unlabored respirations, skin warm/dry/pink. 23:27 Reassessment: Patient appears in no apparent distress at this time. No changes from al5 previously documented assessment. Patient and/or family updated on plan of care and expected duration. Pain level reassessed. Patient is alert, oriented x 3, equal unlabored respirations, skin warm/dry/pink. 02/12 00:04 Reassessment: gave report to BILLY de paz at [facility]. al5 00:42 Reassessment: Patient appears in no apparent distress at this time. No changes from al5 previously documented assessment. Patient and/or family updated on plan of care and expected duration. Pain level reassessed. Patient is alert, oriented x 3, equal unlabored respirations, skin warm/dry/pink. Psych: 02/11 20:36 [place] Suicide Severity Screening: In the past month, have you wished you were al5 or wished you could go to sleep and not wake up? Patient responds "yes." "In the past month, have you actually had any thoughts of killing yourself?" Patient responds "yes." Based off the client's response additional [place] suicide severity screening questions to be further documented on paper forms. "In your lifetime, have you ever done anything, started to do anything, or prepared to do anything to end your life?" Patient responds "no.". Subjective: Patient's mood is sad, Delusions are denied, Hallucinations are denied Having thoughts of suicide. Denies suicidal plan. Objective: Patient is cooperative, Speech is normal, Affect is flat, Patient has mutilated themselves by superficial lacerations to L inner forearm. Interventions: Removed personal items and placed in bag. Searched person for dangerous items. Urine collected and sent for urine drug test. Belonging list filled out. patient placed in paper blue scrubs. 20:36 Safety Checks: Personal items have been removed. Door is open. Visitors are present. Pt al5 denies substance abuse. Commitment: Patient will be a voluntary commitment. Vital Signs: 20:29 BP 111 / 68; Pulse 74; Resp 18; Temp 98.5; Pulse Ox 100% on R/A; Weight 71.21 kg; al5 Height 5 ft. 4 in. ; 23:27 BP 108 / 61; Pulse 62; Resp 16; Temp 98.3; Pulse Ox 97% on R/A; al5 02/12 01:30 BP 95 / 52; Pulse 66; Resp 16; Temp 98.3; Pulse Ox 98% on R/A; al5 02/11 20:29 Body Mass Index 26.95 (71.21 kg, 162.56 cm) al5 Tony Coma Score: 00:38 Eye Response: spontaneous(4). Motor Response: obeys commands(6). Verbal Response: sp4 oriented(5). Total: 15. ED Course: 02/11 20:31 Arm band placed on right wrist. Patient placed in the treatment room, in view of staff al5 members, on cardiac specialist, on pulse oximetry. 20:32 Patient arrived in ED. gm2 20:34 Patient has correct armband on for positive identification. Bed in low position. Call al5 light in reach. Side rails up X2. Provided Education on: plan of care. 20:36 Omar Bryan MD is Attending Physician. sp4 21:20 Mely Berg, RN is Primary Nurse. al5 21:23 Triage completed. al5 21:23 Acetaminophen Sent. hw 21:24 Basic Metabolic Panel Sent. hw 21:24 CBC with Diff Sent. hw 21:24 ETOH Level Sent. hw 21:24 Hepatic Function Sent. hw 21:24 PT-INR Sent. hw 21:24 Test, Urine Sent. hw 21:24 Ptt, Activated Sent. hw 21:24 Salicylate Sent. hw 21:24 Urinalysis w/ reflexes Sent. hw 21:24 Urine Drug Screen Sent. hw 21:24 Inserted saline lock: 20 gauge in right antecubital area, using aseptic technique. hw Blood collected. Flushed with 10 mL NS. 21:24 EKG done, by ED staff, reviewed by Omar Bryan MD. hw 22:25 Assist provider with laceration repair on palmar aspect of left forearm that was 2.5 al5 cm. or less using sutures. Set up tray. Performed by Omar Bryan MD Dressed with donnie bandage Patient tolerated well. 23:32 faxed chart to following facilities; [facility]. vk 04 00:02 Nurse to nurse call from [facility]. vk 00:27 Patient was accepted to [facility] to Dr. Quinn \\T\\ 0021, Admin approval Camilla austin \\T\\[id number] room number will be given at time of arrival. 01:00 EMS to transfer. vk 01:30 IV discontinued, intact, bleeding controlled, No redness/swelling at site. Pressure al5 dressing applied. Administered Medications: 02/11 21:44 Drug: Boostrix Tdap IM 0.5 ml IM once; as a single dose Route: IM; Site: left deltoid; al5 22:25 Follow up: Response: No adverse reaction al5 21:44 Drug: Ibuprofen PO 800 mg PO once Route: PO; al5 22:25 Follow up: Response: No adverse reaction; Pain is decreased al5 21:44 Drug: Acetaminophen PO 1000 mg PO once Route: PO; al5 22:25 Follow up: Response: No adverse reaction; Pain is decreased al5 22:03 Drug: LORazepam PO 1 mg PO once Route: PO; al5 02/12 01:30 Follow up: Response: No adverse reaction; Anxiety decreased al5 02/11 22:03 Drug: Loperamide PO 2 mg PO once Route: PO; al5 02/12 01:30 Follow up: Response: No adverse reaction al5 02/11 22:25 Drug: Lidocaine Infiltration (1 %) 20 ml 20 ml Infiltration once; to bedside {Note: al5 given by MD.} Volume: 20 ml; Route: Infiltration; 02/12 01:30 Follow up: Response: No adverse reaction al5 Medication: 02/11 21:48 VIS not applicable for this client. Vaccine Information Statement (VIS) provided today. al5 Questions and/or concerns addressed. VIS edition date: June 01, 2021. Outcome: 02/12 00:47 ER care complete, transfer ordered by . sp4 01:30 Transferred by [facility]. Note: dufur leon al5 01:30 Condition: stable 01:30 Instructed on the need for transfer, 01:45 Patient left the ED. al5 Signatures: Omar Bryan MD MD sp4 Lilia Sutherland 2 Ester Mtz Amanda, RN RN al5 Paula Cooper Corrections: (The following items were deleted from the chart) 02/11 21:30 20:30 PMHx: ambien; al5 al5 02/12 00:05 02/11 20:29 Chief complaint: Patient states: c/o SI, lacerations to the L inner forearm al5 superficial al5 02/12 00:28 00:27 Patient was accepted to [facility] to Dr. Quinn \\T\\ 0021, Admin approval Camilla Wright \\T\\[id number] vk
--- NOTE | 2025-02-12 00:48 | EDPHYS ---
Physician Documentation [facility] Name: Vida Hillman Age: 39 yrs Sex: Female : 1985 Arrival Date: 02/11/2025 Time: 20:29 Bed 17 Private MD: ED Physician Omar Bryan HPI: 02/11 20:36 This 39 yrs old Female presents to ER via Unassigned with complaints of sp4 Suicidal Ideation. 23:28 39-year-old female presents with complaint of acute stress worsening depression and sp4 self-inflicted cuts to the left forearm. FLEXIBLE NANNY: 02/12 00:02 LMP N/A - Hysterectomy, Not al5 Historical: - Allergies: 02/11 20:30 HYDROCODONE; al5 - PMHx: 20:30 Anxiety; al5 - PSHx: 20:30 section; Total abdominal hysterectomy; al5 - Immunization history:: Adult Immunizations up to date, Last tetanus immunization: unknown, not up to date, does not remember last time she had one done. - Infectious Disease History:: Denies. - Social history:: Smoking status: Patient denies any tobacco usage or history of. - Family history:: not pertinent. ROS: 02/12 00:38 Constitutional: Negative for fever, chills, and weight loss, positive for worsening sp4 depression, positive for suicidal ideation, positive for self-inflicted lacerations left forearm All other systems are negative, Exam: 00:38 Constitutional: This is a well developed, well nourished patient who is awake, alert, sp4 and in no acute distress. Head/Face: Normocephalic, atraumatic. Eyes: Pupils equal round and reactive to light, extra-ocular motions intact. Lids and lashes normal. Conjunctiva and sclera are not injected. Cornea within normal limits. Periorbital areas with no swelling, redness, or edema. ENT: Nares patent. No nasal discharge, no septal abnormalities noted. Tympanic membranes are normal and external auditory canals are clear. Oropharynx with no redness, swelling, or masses, exudates, or evidence of obstruction, uvula midline. Mucous membranes moist. Neck: Trachea midline, no thyromegaly or masses palpated, and no cervical lymphadenopathy. Supple, full range of motion without nuchal rigidity, or vertebral point tenderness. Chest/axilla: Normal chest wall appearance and motion. Nontender with no deformity. No lesions are appreciated. Cardiovascular: Regular rate and rhythm with a normal S1 and S2. No gallops, murmurs, or rubs. Normal PMI, no JVD. No pulse deficits. Respiratory: Lungs have equal breath sounds bilaterally, clear to auscultation and percussion. No rales, rhonchi or wheezes noted. No increased work of breathing, no retractions or nasal flaring. Abdomen/GI: Soft, with normal bowel sounds. No distension or tympany. No guarding or rebound. No evidence of tenderness throughout. Back: No spinal tenderness. No costovertebral tenderness. Skin: Warm, dry with normal turgor. Normal color with no rashes, no lesions, and no evidence of cellulitis. MS/ Extremity: Pulses equal, no cyanosis. Neurovascular intact. Full, normal range of motion. Several self-inflicted abrasions to the left mid forearm palmar surface. 2 lacerations and also 2 smaller sized lacerations left mid forearm palmar surface no active bleeding Neuro: Awake and alert, GCS 15, oriented to person, place, time, and situation. Cranial nerves II-XII grossly intact. Motor strength 5/5 in all extremities. Sensory grossly intact. Psych: Awake, alert, with orientation to person, place and time. Behavior, depressed mood flat affect 00:38 ECG was reviewed by the Attending Physician. EKG 2053 sinus rhythm first-degree AV block rate 85 Vital Signs: 02/11 20:29 BP 111 / 68; Pulse 74; Resp 18; Temp 98.5; Pulse Ox 100% on R/A; Weight 71.21 kg; al5 Height 5 ft. 4 in. ; 23:27 BP 108 / 61; Pulse 62; Resp 16; Temp 98.3; Pulse Ox 97% on R/A; al5 02/12 01:30 BP 95 / 52; Pulse 66; Resp 16; Temp 98.3; Pulse Ox 98% on R/A; al5 02/11 20:29 Body Mass Index 26.95 (71.21 kg, 162.56 cm) al5 Tony Coma Score: 00:38 Eye Response: spontaneous(4). Motor Response: obeys commands(6). Verbal Response: sp4 oriented(5). Total: 15. Laceration: 00:47 Wound Repair of 4cm ( 1.6in ) subcutaneous laceration to dorsal aspect of left forearm. sp4 Linear shaped.. Distal neuro/vascular/tendon intact. Anesthesia: Wound infiltrated with 5 mls of 1% lidocaine. Wound prep: Moderate cleansing by me, Copious irrigation. Skin closed with 6 6-0 Prolene using running sutures and sterile technique. Dressed with 4x4's, Kerlix, non-adherent dressing. Patient tolerated well. 00:47 Wound Repair of 3cm ( 1.2in ) subcutaneous laceration to dorsal aspect of left forearm sp4 - second sefl inflicted laceration . Linear shaped.. Hemostasis noted.. Distal neuro/vascular/tendon intact. Anesthesia: Wound infiltrated with 5 mls of 1% lidocaine. Wound prep: Moderate cleansing by me, Copious irrigation. Skin closed with 5 6-0 Prolene using running sutures and sterile technique. Dressed with 4x4's, Kerlix, non-adherent dressing. Patient tolerated well. 00:47 Wound Repair of 2cm ( 0.8in ) subcutaneous laceration to dorsal aspect of left forearm sp4 - Third self inflicted laceration 2 cm long . Linear shaped.. Hemostasis noted.. Distal neuro/vascular/tendon intact. Anesthesia: Wound infiltrated with 4 mls of 1% lidocaine. Wound prep: Moderate cleansing by me, Copious irrigation. Skin closed with 2 6-0 Prolene using interrupted sutures and sterile technique. Dressed with 4x4's, Kerlix, non-adherent dressing. Patient tolerated well. 00:47 Wound Repair of 2cm ( 0.8in ) subcutaneous laceration to dorsal aspect of left forearm sp4 - Fourth self inflicted laceration . Linear shaped.. Hemostasis noted.. Distal neuro/vascular/tendon intact. Anesthesia: Wound infiltrated with 4 mls of 1% lidocaine. Wound prep: Moderate cleansing by me, Copious irrigation. Skin closed with 2 6-0 Prolene using interrupted sutures and sterile technique. Dressed with 4x4's, Kerlix, non-adherent dressing. Patient tolerated fair. MDM: 02/11 20:49 Medical Screening Exam initiated sp4 02/12 00:41 Differential diagnosis: drug withdrawal. acute psychotic break, depression, psychosis sp4 secondary to non-compliance, Suicide attempt. Data reviewed: vital signs, nurses notes, lab test result(s), EKG. Consideration of Admission/Observation Escalation of care including admission/observation considered. ED course: Patient states she would like to proceed with admission to psychiatric hospital secondary to suicidal thoughts and plan. 00:44 Management of patient was discussed with the following: Supervisor/Port Director: Accepting [facility] psychiatrist. ED course: Patient was accepted to [facility] . 02/11 20:37 Order name: Acetaminophen; Complete Time: 00:42 [facility] 02/11 20:37 Order name: Basic Metabolic Panel; Complete Time: 00:42 [facility] 02/11 20:37 Order name: CBC with Diff; Complete Time: 00: [facility] 02/11 20:37 Order name: ETOH Level; Complete Time: 00:42 02/11 20:37 Order name: Hepatic Function; Complete Time: 00:42 [facility] 02/11 20:37 Order name: PT-INR; Complete Time: 00: [facility] 02/11 20:37 Order name: Test, Urine; Complete Time: 00:42 [facility] 02/11 20:37 Order name: Ptt, Activated; Complete Time: 00:42 [facility] 02/11 20:37 Order name: Salicylate; Complete Time: 00:42 [facility] 02/11 20:37 Order name: Urinalysis w/ reflexes; Complete Time: 00:42 02/11 20:37 Order name: Urine Drug Screen; Complete Time: 00:42 [facility] 02/11 20:37 Order name: EKG; Complete Time: 20:38 [facility] 02/11 20:37 Order name: EKG - Nurse/Tech; Complete Time: 21:23 [facility] 02/11 20:37 Order name: IV Saline Lock; Complete Time: 21:23 [facility] 02/11 20:37 Order name: Labs collected and sent; Complete Time: 21:23 [facility] 02/11 20:37 Order name: Suicide Precautions; Complete Time: 20:42 [facility] 02/11 20:37 Order name: Suicide Screening ([place]); Complete Time: 21:32 [facility] 02/11 20:49 Order name: Dressing - Wound; Complete Time: 21:44 [facility] 02/11 20:49 Order name: Gloves, Sterile; Complete Time: 21:44 [facility] 02/11 20:49 Order name: Setup Suture Tray; Complete Time: 21:44 sp4 EC/18 20:53 Rate is 85 beats/min. Rhythm is regular, Sinus Rhythm. QRS [place] is Normal. [place] interval sp4 is prolonged. QRS interval is normal. QT interval is normal. No Q waves. T waves are Normal. No ST changes noted. Clinical impression: No evidence of ischemia. Interpreted by me. Reviewed by me. Administered Medications: :44 Drug: Boostrix Tdap IM 0.5 ml IM once; as a single dose Route: IM; Site: left deltoid; al5 22:25 Follow up: Response: No adverse reaction al5 21:44 Drug: Ibuprofen PO 800 mg PO once Route: PO; al5 22:25 Follow up: Response: No adverse reaction; Pain is decreased al5 :44 Drug: Acetaminophen PO 1000 mg PO once Route: PO; al5 22:25 Follow up: Response: No adverse reaction; Pain is decreased al5 22:03 Drug: LORazepam PO 1 mg PO once Route: PO; al5 02/12 01:30 Follow up: Response: No adverse reaction; Anxiety decreased al5 02/11 22:03 Drug: Loperamide PO 2 mg PO once Route: PO; al5 02/12 01:30 Follow up: Response: No adverse reaction al5 02/11 22:25 Drug: Lidocaine Infiltration (1 %) 20 ml 20 ml Infiltration once; to bedside {Note: al5 given by MD.} Volume: 20 ml; Route: Infiltration; 02/12 01:30 Follow up: Response: No adverse reaction al5 Disposition Summary: 02/12/25 00:47 Transfer Ordered Notes: Transfer Location: [facility] Facility sp4 Reason: Higher level of care sp4 Condition: Stable sp4 Problem: new sp4 Symptoms: are unchanged sp4 Accepting Physician: [facility] accepting psychiatrist(02/12/25 01:45) al5 Diagnosis - Acute stress reaction, depressive disorder, suicidal ideation with plan, left sp4 forearm self-inflicted laceration Forms: - Medication Reconciliation Form sp4 - SBAR form sp4 Signatures: Dispatcher [employer] EDOmar Roque MD MD sp4 Mely Berg RN RN al5 Corrections: (The following items were deleted from the chart) 02/11 20:38 20:38 ACETAMINOPHEN+C.LAB.BRZ ordered. EDMS EDMS 20:38 20:38 BASIC METABOLIC PANEL+C.LAB.BRZ ordered. EDMS EDMS 20:38 20:38 CBC+H.LAB.BRZ ordered. EDMS EDMS 20:38 20:38 ETHANOL+C.LAB.BRZ ordered. EDMS EDMS 20:38 20:38 HEPATIC FUNCTION+C.LAB.BRZ ordered. EDMS EDMS 20:38 20:38 PROTIME (+INR)+COAG.LAB.BRZ ordered. EDMS EDMS 20:38 20:38 Test, Urine+UC.LAB.BRZ ordered. EDMS EDMS 20:38 20:38 PTT, ACTIVATED+COAG.LAB.BRZ ordered. EDMS EDMS 20:38 20:38 SALICYLATE+C.LAB.BRZ ordered. EDMS EDMS 20:38 20:38 Urinalysis+U.LAB.BRZ ordered. EDMS EDMS 20:38 20:38 URINE DRUG SCREEN+UC.LAB.BRZ ordered. EDMS EDMS 21:30 20:30 PMHx: ambien; al5 al5 02/12 01:45 00:47 [facility] psychiatrist sp4 al5
[2025-02-12 02:22] VITALS: TEMP 98.3
[2025-02-12 02:23] VITALS: BP 95/52; O2SAT 98
== END 2025-02-12 01:45 ==
LOC: ER 20:29
DX: R45.851 Suicidal ideations (principal); F43.0 Acute stress reaction; F32.A Depression, unspecified; S51.812A Laceration without foreign body of left forearm, initial encounter; X78.9XXA Intentional self-harm by unspecified sharp object, initial encounter; Z23 Encounter for immunization
CPT/HCPCS: 93005; 85025; 81001; 80048; 36415; 81025; 85610; 80076; 85730; 80307; 90715; 80143; 80179; 82077; 12034; J2003; 12001; 12002; 96372; 99285

== ENCOUNTER 2025-06-16 10:35 | Emergency (ER) | payer OTHER ==
--- OUTSIDE RECORDS SUMMARY | 2025-06-16 10:38 | XMS REPORT | Continuity of Care Document ---
Author Name Unknown Address [address] [facility] [place] [address] [facility] Address [address] [place] [address] Care Team Providers Care Shower Maid Name Role Phone Kentrell Nicole Primary Care Physician [phone] Anel Srivastava Attending Clinician [phone] Rosie Beaver Attending Clinician + Lab, Ang-chp Attending Clinician Unavailable PÉREZ YEPEZ Attending Clinician Unavailable Pérez Johnson Attending Clinician [phone] Doctor Unassigned, [place] Attending Clinician U JB Suero Attending Clinician Unavailable PÉREZ YEPEZ Admitting Clinician Unavailable Payers Payer Name Policy Type Policy Number Effective Date Expirati on Date Source [facility] MEDICAID [id number] 2015 00:00:00 Problems Condition Name Condition Details Condition Category Status Onset Date Resolution Date Last Treatment Date Treating Clinician Comments Source Encounter for other general counseling or advice on contracept ion Encounter for other general counseling or advice on contracept ion Disease Active 2015-10 00:00: 00 [facility] History of hysterecto my History of hysterecto my Disease Active 2015-10 00:00: 00 [facility] Hair loss Hair loss Disease Active 2015-10 00:00: 00 [facility] Gestationa l diabetes mellitus, antepartum Gestationa l diabetes mellitus, antepartum Disease Resolve d 04-11 00:00: 00 2024-10-01 00:00:00 2024-10-01 10:43:30 [facility] Routine follow-up Routine follow-up Disease Resolve d 04-11 00:00: 00 2016-08-02 00:00:00 2016-08-02 14:53:24 [facility] Anemia of mother in , condition Anemia of mother in , condition Disease Resolve d 04-11 00:00: 00 2016-08-02 00:00:00 2016-08-02 14:52:49 [facility] Cellulitis Cellulitis Disease Resolve d 03-28 00:00: 00 2016-04-11 00:00:00 2016-04-11 16:14:07 [facility] Bladder injury, closed, subsequent encounter Bladder injury, closed, subsequent encounter Disease Resolve d 03-28 00:00: 00 2016-04-11 00:00:00 2016-04-11 16:14:10 [facility] S/P section S/P section Disease Resolve d 03-28 00:00: 00 2016-04-11 00:00:00 2016-04-11 16:14:11 [facility] S/P hysterecto my S/P hysterecto my Disease Resolve d 03-28 00:00: 00 2016-04-11 00:00:00 2016-04-11 16:14:12 [facility] Supervisio n of high-risk with insufficie nt care, unspecifie d trimester Supervisio n of high-risk with insufficie nt care, unspecifie d trimester Disease Resolve d 11-07 00:00: 00 2016-04-11 00:00:00 2016-04-11 16:14:16 [facility] Multiparit y Multiparit y Disease Resolve d 0 1-12 00:00: 00 2016-04-11 00:00:00 2016-04-11 16:14:06 [facility] Previous delivery, antepartum condition or complicati on Previous delivery, antepartum condition or complicati on Disease Resolve d 0 1-12 00:00: 00 2016-04-11 00:00:00 2022-05-12 00:39:07 [facility] Routine follow-up Routine follow-up Disease Resolve d 0 5-31 00:00: 00 2016-03-28 00:00:00 2016-03-28 18:22:30 [facility] Status post emergency hysterecto my Status post emergency hysterecto my Disease Resolve d 0 527 00:00: 00 2016-03-28 00:00:00 2022-05-12 00:40:47 [facility] Disease Resolve d 0 5-24 00:00: 00 2016-03-28 00:00:00 2016-03-28 18:22:48 [facility] A2DM A2DM Disease Resolve d 427 00:00: 00 2016-03-28 00:00:00 2016-03-28 18:22:49 [facility] Placenta previa Placenta previa Disease Resolve d 4-17 00:00: 00 2016-03-28 00:00:00 2016-03-28 18:22:20 [facility] Vaginal bleeding in , third trimester Vaginal bleeding in , third trimester Disease Resolve d 0 4-17 00:00: 00 2016-03-28 00:00:00 2016-03-28 18:22:26 [facility] Tubal ligation status Tubal ligation status Disease Resolve d 0 4-05 00:00: 00 2016-03-28 00:00:00 2016-03-28 18:22:28 [facility] Placenta previa without hemorrhage , antepartum Placenta previa without hemorrhage , antepartum Disease Resolve d 0 2-12 00:00: 00 2016-03-28 00:00:00 2016-03-28 18:22:50 [facility] Obesity complicati ng Obesity complicati ng Disease Resolve d 1-12 00:00: 00 2016-03-28 00:00:00 2016-03-28 18:22:53 [facility] History of gestationa l diabetes History of gestationa l diabetes Disease Resolve d 1-12 00:00: 00 2016-03-28 00:00:00 2016-03-28 18:22:51 [facility] 30 weeks gestation of 30 weeks gestation of Disease Resolve d 4-21 00:00: 00 2016-03-05 00:00:00 2016-03-05 16:35:20 [facility] Pain of round ligament complicati ng , antepartum Pain of round ligament complicati ng , antepartum Disease Resolve d 3-22 00:00: 00 2016-03-05 00:00:00 2016-03-05 16:35:12 [facility] History of threatened History of threatened Disease Resolve d 112 00:00: 00 2016-03-05 00:00:00 2016-03-05 16:35:06 [facility] Allergies, Adverse Reactions, Alerts Allergy Name Allergy Type Status Severity Reaction(s) Onset Date Inactive Date Treating Clinician Comments Source NO KNOWN ALLERGIE S Drug Class Active [facility] Social History Social Habit Start Date Stop Date Quantity Comments Source Exposure to SARS-CoV-2 (event) Not sure [facility] Al[facility]olic beverage intake 2024-10-05 00:00:00 2024-10-05 00:00:00 0 /d [facility] History of Social function 2024-10-05 00:00:00 2024-10-05 00:00:00 [facility] Alcohol intake 2024-02-10 00:00:00 2024-02-10 00:00:00 0 /d [facility] Tobacco use and exposure 2015-11-07 00:00:00 2015-11-07 00:00:00 Smokeless tobacco non-user [facility] Sex assigned at 1985 00:00:00 1985 00:00:00 [facility] Smoking Status Start Date Stop Date Source Never smoked tobacco [facility] Medications Ordered Medication Name Filled Medication Name Start Date Stop Date Current Medication? Ordering Clinician Indication Dosage Frequency Signature (SIG) Comments Components Source IBUPROFEN ORAL 2023-10 10:28: 33 10-01 00:00 :00 No 800mg Take 800 mg by mouth. [facility] sulfamethox azole-trime thoprim (BACTRIM DS) 800-160 mg per tablet 2023-10 00:00: 00 Yes [id number] 1{tbl} Take 1 tablet by mouth in the morning and 1 tablet in the evening. [facility] fluconazole 150 mg tablet 2023-10 00:00: 00 Yes [id number] 150mg Take 1 tablet by mouth every 3 (three) days. [facility] Nitrofurant oin&Nit. Macrocryst (MACROBID) 100 mg capsule - 00:00: 00 02-23 04:59 :00 No [id number] 100mg Take 1 capsule by mouth in the morning and 1 capsule in the evening. Do all this for 10 days. [facility] terconazole 80 mg vaginal suppository 4-11 00:00: 00 02-08 04:59 :00 No [id number] 80mg Insert 1 Suppositor y into vagina at bedtime for 3 days. [facility] IBUPROFEN ORAL 01-26 13:08: 29 Yes 800mg Take 800 mg by mouth. [facility] zolpidem 10 mg tablet -18 00:00: 00 10-01 00:00 :00 No TAKE ONE (1) TABLET(S) BY MOUTH AT BEDTIME NEEDED FOR INSOMNIA. [facility] topiramate 50 mg tablet -15 00:00: 00 Yes 50mg Take 1 tablet by mouth in the morning. [facility] ALPRAZolam 1 mg tablet 01-08 00:00: 00 10-01 00:00 :00 No TAKE ONE (1) TABLET(S) BY MOUTH THREE TIMES A DAY NEEDED FOR ANXIETY. [facility] phentermine 37.5 mg tablet 01-08 00:00: 00 10-01 00:00 :00 No 37.5mg Take 1 tablet by mouth in the morning. [facility] dicyclomine (BENTYL) injection 20 mg 01-16 13:00: 00 Yes 20mg 20 mg, Intramuscu lar, QID, First dose on Fri01/16/22 at 0800, Until Discontinu ed, Routine [facility] ketorolac (TORADOL) injection 30 mg 01-16 09:30: 00 01-16 08:23 :00 No 30mg 30 mg, Slow IV Push, ONCE, 1 dose, On Fri01/16/22 at 0430, Routine
member of the legislative council approving Restricted medication : BIANCA MAI [facility] iopamidol (ISOVUE 370-500 mL) injection 120 mL 01-16 08:30: 00 01-16 07:24 :00 No [id number] 120mL 120 mL, Intravenou s, ONCE, 1 dose, On Fri01/16/22 at 0330, Routine [facility] ondansetron (ZOFRAN (PF)) injection 4 mg 01-16 08:00: 00 01-16 06:52 :00 No 4mg 4 mg, Slow IV Push, ONCE, 1 dose, On Fri01/16/22 at 0300, TRACIE [facility] NaCl 0.9% (NS) IV infusion 1,000 mL 01-16 07:45: 00 01-16 08:21 :00 No 1000mL at 999 mL/hr, Intravenou s, ONCE, 1 dose, On Fri01/16/22 at 0245, TRACIE [facility] dicyclomine 20 mg tablet 01-16 00:00: 00 Yes [id number] 20mg Take 1 tablet by mouth every 6 (six) hours as needed for Abdominal pain. [facility] ibuprofen 800 mg tablet 01-16 00:00: 00 Yes [id number] 800mg Take 1 tablet by mouth every 8 (eight) hours as needed for Pain (scale 4-6). [facility] ondansetron (ZOFRAN) 4 mg tablet 01-16 00:00: 00 Yes [id number] 4mg Take 1 tablet by mouth every 8 (eight) hours as needed for Nausea and Vomiting (N/V). [facility] IBUPROFEN ORAL 2015-10 0 15:10: 46 Yes 800mg Take 800 mg by mouth. [facility] Immunizations Ordered Immunization Name Filled Immunization Name Date Status Comments Source Influenza Virus Vaccine 2023-12-23 00:00:00 Completed [facility] TDAP 2016-01-30 00:00:00 Completed [facility] TDAP 2016-01-30 00:00:00 Completed [facility] TDAP 2016-01-30 00:00:00 Completed [facility] TDAP Unknown Completed [facility] Influenza Virus Vaccine Unknown Completed [facility] TDAP Unknown Completed [facility] Influenza Virus Vaccine Unknown Completed [facility] TDAP Unknown Completed [facility] Influenza Virus Vaccine Unknown Completed [facility] TDAP Unknown Completed [facility] Influenza Virus Vaccine Unknown Completed [facility] TDAP Unknown Completed [facility] Influenza Virus Vaccine Unknown Completed [facility] TDAP Unknown Completed [facility] Influenza Virus Vaccine Unknown Completed [facility] TDAP Unknown Completed [facility] Influenza Virus Vaccine Unknown Completed [facility] Vital Signs Vital Name Observation Time Observation Value Comments S ource Systolic blood pressure 2024-10-01 16:24:00 140 mm[Hg] [facility] Diastolic blood pressure 2024-10-01 16:24:00 80 mm[Hg] [facility] Body temperature 2024-10-01 16:15:00 36.11 Cecily [facility] Respiratory rate 2024-10-01 16:15:00 18 /min [facility] Body height 2024-10-01 16:15:00 162.6 cm [facility] Body weight 2024-10-01 16:15:00 70.489 kg [facility] BMI 2024-10-01 16:15:00 26.67 kg/m2 [facility] Heart rate 2024-10-01 16:15:00 89 /min [facility] Systolic blood pressure 2024-01-27 18:00:00 131 mm[Hg] [place] [facility] Diastolic blood pressure 2024-01-27 18:00:00 77 mm[Hg] [facility] Heart rate 2024-01-27 18:00:00 87 /min Unive [facility] Body temperature 2024-01-27 18:00:00 36.06 Cecily [facility] Respiratory rate 2024-01-27 18:00:00 18 /min [facility] Body height 2024-01-27 18:00:00 162.6 cm [facility] Body weight 2024-01-27 18:00:00 71.305 kg [facility] BMI 2024-01-27 18:00:00 26.98 kg/m2 [facility] Systolic blood pressure 2022-01-16 06:40:00 116 mm[Hg] [place] [facility] Diastolic blood pressure 2022-01-16 06:40:00 82 mm[Hg] [facility] Heart rate 2022-01-16 06:40:00 74 /min [facility] Body temperature 2022-01-16 06:40:00 36.22 Cecily [facility] Respiratory rate 2022-01-16 06:40:00 18 /min [facility] Body height 2022-01-16 06:40:00 162.6 cm [facility] Oxygen saturation in Arterial blood by Pulse oximetry 2022-01-16 06:40:00 96 /min [place] [facility] Procedures Procedure Date / Time Performed Performing Clinicia n Source POCT URINALYSIS W/O SPECIFIC GRAVITY 2024-10-01 18:25:00 Anel Brandt [facility] URINE CULTURE 2024-10-01 18:22:00 Anel Brandt [facility] GC & CHLAMYDIA AMPLIFIED ASSAY 2024-10-01 18:22:00 Anel Brandt [facility] GALV ONLY - VAGINAL PATHOGENS BY NUCLEIC ACID TESTING 2024-10-01 18:22:00 Anel Brandt [facility] URINALYSIS 2022-01-16 07:41:00 Bianca Mai [facility] CT ABDOMEN PELVIS W CONTRAST 2022-01-16 07:26:26 Pérez Yepez [facility] LIPASE 2022-01-16 06:42:00 Bianca Mai [facility] COMP. METABOLIC PANEL ([id number]) 2022-01-16 06:42:00 Bianca Mai [facility] CBC WITH DIFF 2022-01-16 06:42:00 Bianca [facility] NOTICE OF PRIVACY PRACTICES 2022-01-16 06:32:41 Doctor Unassigned, [place] [facility] CONSENT/REFUSAL FOR DIAGNOSIS AND TREATMENT 2022-01-16 06:32:23 Doctor Unassigned, [place] [facility] Encounters Start Date/Time End Date/Time Encounter Type Admission Type Attending Clinicians Care Facility Care Department Encounter ID Source 2024-10-01 10:15:00 2024-10-01 13:38:00 Office Visit Anel Brandt [facility] SALES REPRESENTATIVE [employer] [facility] 1..840.114 350.1.13.10 4.2.7.2.686 [id number] [facility] 2024-02-12 00:00:00 2024-03-20 18:12:09 Patient Secure Msg Rosie Arreola [facility] SALES REPRESENTATIVE [employer] [facility] 1..840.114 350.1.13.10 4.2.7.2.686 [id number] [facility] 2024-02-13 00:00:00 2024-02-13 00:00:00 Telephone Rosie Arreola [facility] SALES REPRESENTATIVE [employer] [facility] 1.2.840.114 350.1.13.10 4.2.7.2.686 [id number] [facility] 2024-02-10 07:03:16 2024-02-10 23:59:00 Hospital Encounter Rosie Arreola [facility] 1.2.840.114 350.1.13.10 4.2.7.2.686 [id number] [facility] 2024-02-10 10:00:00 2024-02-10 10:03:02 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, SergeRmchRosie Cartwright [facility] SALES REPRESENTATIVE [employer] [facility] 1.2.840.114 350.1.13.10 4.2.7.2.686 [id number] [facility] 2024-02-05 00:00:00 2024-02-05 00:00:00 Telephone Rosie Arreola [facility] SALES REPRESENTATIVE [employer] [facility] 1.2.840.114 350.1.13.10 4.2.7.2.686 [id number] [facility] 2024-02-05 00:00:00 2024-02-05 00:00:00 Telephone Rosie Arreola [facility] SALES REPRESENTATIVE [employer] [facility] 1.2.840.114 350.1.13.10 4.2.7.2.686 [id number] [facility] 2024-01-27 13:00:00 2024-01-27 13:33:39 Office Visit Rosie Arreola [facility] SALES REPRESENTATIVE [employer] [facility] 1.2.840.114 350.1.13.10 4.2.7.2.686 [id number] [facility] 2022-01-16 01:36:00 2022-01-16 03:32:00 Emergency X PÉREZ YEPEZ [facility] ERT [id number] [facility] 2022-01-16 01:36:00 2022-01-16 03:32:00 Emergency Pérez Yepez S [facility] 1.2.840.114 350.1.13.10 4.2.7.2.686 [id number] [facility] 2022-01-16 00:00:00 2022-01-16 00:00:00 Orders Only Doctor Unassigned, [place] [facility] 1.2.840.114 350.1.13.10 4.2.7.2.686 [id number] [facility] 2017-08-16 11:00:00 2017-08-16 11:00:00 Outpatient JB GONZALES [facility] [id number] [facility] Results Test Description Test Time Test Comments Results Result Co mments Source [facility] with [id number] 07:02:42* Test Item Value Reference Range Interpretation Comme nts WBC (test code = 6690-2) See_Comment [Automated Adomika ge] The system which generated this result transmitted reference range: 4.30 - 11.10 10*3/?L. The reference range was not used to interpret this result as normal/abnormal. RBC (test code = 789-8) See_Comment [Automated [facility]] The system which generated this result transmitted [...] 33.2 g/dL 31.6-35.1 RDW-SD (test code = 68031-7) 39.6 fL 39.0-49.9 RDW-CV (test code = 788-0) 12.2 % 12.0-15.5 PLT (test code = 777-3) See_Comment [Automated messa ge] The system which generated this result transmitted reference range: 166 - 358 10*3/?L. The reference range was not used to interpret this result as normal/abnormal. MPV (test code = 34846-9) 9.3 fL 9.5-12.9 L NRBC/100 WBC (test code = 9687868371) See_Comment [Automated [employer] ssage] The system which generated this result transmitted reference range: 0.0 - 10.0 /100 WBCs. The reference range was not used to interpret this result as normal/abnormal. NRBC x10^3 (test code = 8424844558) <0.01 See_Comment [Automated messa ge] The system which generated this result transmitted reference range: 10*3/?L. The reference range was not used to interpret this result as normal/abnormal. GRAN MAT (NEUT) % (test code = 770-8) 49.8 % IMM GRAN % (test code = 7614748009) 0.70 % LYMPH % (test code = 736-9) 42.6 % MONO % (test code = 5905-5) 4.7 % EOS % (test code = 713-8) 1.5 % BASO % (test code = 706-2) 0.7 % GRAN MAT x10^3(ANC) (test code = 3467474275) 2.97 10*3/uL 1.88-7.09 IMM GRAN x10^3 (test code = 3913855504) 0.04 10*3/uL 0.00-0.06 LYMPH x10^3 (test code = 731-0) 2.54 10*3/uL 1.32-3.29 MONO x10^3 (test code = 742-7) 0.28 10*3/uL 0.33-0.92 L EOS x10^3 (test code = 711-2) 0.09 10*3/uL 0.03-0.39 BASO x10^3 (test code = 704-7) 0.04 10*3/uL 0.01-0.07 Lab Interpretation (test code = 43816-2) [facility] [id number] 07:01:00* Test Item Value Reference Range Interpretation Comme nts NA (test code = 2265027729) 138 mmol/L 135-145 K (test code = 6727115267) 4.0 mmol/L 3.5-5.0 CL (test code = 6892179775) 102 mmol/L 98-108 CO2 TOTAL (test code = 8094988698) 25 mmol/L 23-31 AGAP (test code = 6495887171) 2-16 BUN (test code = 1379729412) 10 mg/dL 7-23 GLUCOSE (test code = 1301409489) 91 mg/dL 70-110 CREATININE (test code = 5141719168) 0.43 mg/dL 0.50-1.04 L TOTAL BILI (test code = 1101574327) 0.5 mg/dL 0.1-1.1 CALCIUM (test code = 4338493936) 9.2 mg/dL 8.6-10.6 T PROTEIN (test code = 8425976710) 7.6 g/dL 6.3-8.2 ALBUMIN (test code = 5757282962) 4.6 g/dL 3.5-5.0 ALK PHOS (test code = 0688131140) 75 U/L 34-122 ALTv (test code = 1742-6) 99 U/L 5-35 H AST(SGOT) (test code = 4103153144) 55 U/L 13-40 H eGFR (test code = 7107229191) mL/min/1.73m2 JULIAN (test code = JULIAN) Association [...] imaging tests). Lab Interpretation (test code = 06807-0) [facility]normal [facility] [id number] 07:01:00* Test Item Value Reference Range Interpretation Comme nts LIPASE (test code = 8694465688) 71 U/L 0-220 Lab Interpretation (test cod e = 62195-6) Normal [facility] Notes Date/Time Note Provider Source 2024-02-13 16:19:37 Called patient, notified patient positive for UTI. Educated patient on antibiotics, good perineal hygiene, and increasing fluids. Pt verbalized understanding. DAVID Gonzalez RN 02/13/2024 4:19 PM T [facility] 2024-02-13 16:09:26 Please notify the patient of UTI, meds have been sent to the pharmacy. Please advise the patient on good perineal hygiene, drinking plenty of water, and completing the entire course of treatment. ELIZABETH Coates [facility] 08:43:34 Patient informed of recommendations, stated she does not want to do suppository and will not take it since she is not having symptoms at this time. Esther Simon LVN [facility] 2024-02-06 08:42:33 See other encounter. Esther Simon LEASING CONSULTANT [facility] 2024-02-05 17:26:05 Vida Hillman is a 38 year old female Patient returning call to david in the clinic regarding results. Please advise. [phone] (home) Katheryn Pandey [facility] 2024-02-05 16:32:48 2nd attempt. No answer. Left vm. David Gonzalez RN 02/05/24 4:32 PM [facility] 2024-02-05 13:06:18 Called pt, no answer. Left vm. David Gonzalez RN 02/05/24 1:06 PM [facility] 2024-02-05 12:09:26 Please advise patient that according to her chart she is currently taking alprazolam and it interact with diflucan that is why the vag sup was sent ELIZABETH Coates 02/05/2024 12:10 PM [facility] 2024-02-05 11:37:14 Patient informed medication sent to pharmacy. Patient stated she did not want a vaginal suppository and would like oral medication. Informed will route to provider to see if oral medication can sent. Esther Simon [facility] 2024-02-05 11:23:07 Meds sent to pharmacy on file ELIZABETH Coates 02/05/2024 11:23 AM T [facility] 2024-02-05 10:58:07 Patient informed of results for 01/27/2024. Pt stated she is no longer having symptoms of a yeast infection but would still like treatment. Informed will route to provider for orders. Pt stated she does have an odor to her urine and would like to have labs done for uti. Lab appt made on 02/09 per her request. Esther Simon [facility] 2024-02-05 10:48:12 Copied from [facility] #[id number]. Topic: Clinical - Results >> Feb 05, 2024 10:47 AM Patient Welding Estimator wrote: Vida Hillman is a 38 year old female requesting call back for results clarification. Please call [phone] Caitie Mason [facility]"
[2025-06-16] MEDS ORDERED: ONDANSETRON 4 MG/2 ML VIAL ONE (10:58)
[2025-06-16] MEDS ORDERED: KETOROLAC 30 MG/ML INJ ONE (10:58)
[2025-06-16] MEDS ORDERED: NA CHLORIDE 0.9% 1,000 ML ONE (10:58)
--- NOTE | 2025-06-16 11:21 | RAD REPORT ---
EXAMINATION: CT HEAD WITHOUT CONTRAST CT CERVICAL SPINE WITHOUT CONTRAST CLINICAL INDICATION: Head and neck injury status post alteration.. Head and neck pain TECHNIQUE: Axial CT images from the skull base to the vertex without intravenous contrast. Axial CT i mages through the cervical spine were obtained without intravenous contrast. Sagittal and coronal reformatted images were created from the data set. Coronal and sagittal reformatted images were creat ed from the data set. One or more of the following dose reduction techniques were used: Automated exposure control, adjustment of the mA and/or kV according to patient size, and/or iterative reconstr uction. Unless otherwise specified, incidental findings do not require dedicated imaging follow-up. [id number]. Comparison: none FINDINGS: Left frontal scalp swelling. An intracranial bleed is not seen. Ventricles are normal in caliber. No significant hypodensity within the brain No extra-axial fluid collection. No fluid within the sinuses/mastoids No fracture or dislocation is seen involving the cervical spine. IMPRESSION: No acute intracranial abnormality noted A cervical fracture is not seen. If the patient continues to have symptoms to suggest acute CLINICAL ADVISOR/spinal pathology then MRI would be rec ommended
--- NOTE | 2025-06-16 11:25 | RAD REPORT ---
EXAM: CT CHEST, ABDOMEN AND PELVIS WITHOUT CONTRAST CLINICAL INDICATION: Chest and abdominal pain TECHNIQUE: CT chest, abdomen and pelvis was performed, without IV contrast, as per department protoco l. Axial, sagittal and coronal reconstructions were obtained. One or more of the following dose reduction techniques were used: Automated exposure control, adjustment of the mA and/or kV according to the patient size, and/or iterative reconstruction. Unless otherwise specified, incidental findings do not require dedicated imaging follow-up. The lack of IV and oral contrast limits evaluation of the mediastinum, sanjuana, vessels, organs and john l. COMPARISON: None FINDINGS: No pulmonary contusion A mediastinal hematoma not seen. No pleural effusion. No pericardial effusion. Liver, spleen, pancreas, adrenals kidneys and bladder do not demonstrate a traumatic injury. There is no evidence of diverticulitis IMPRESSION: No acute traumatic injury [id number]
[2025-06-16 11:56] LABS: Absolute Lymphocytes (CBC) 1.2 K/uL (0.7-4.9); Hematocrit 40.8 % (36.0-45.0); Hemoglobin 13.5 g/dL (12.0-15.0); MCH 28.7 pg (27.0-35.0); MCHC 33.1 g/dL (32.0-36.0); MCV 86.7 fL (80-100); MPV 7.7 fL (7.6-11.3); Nucleated RBC Absolute Count 0.0 (0-0); Nucleated Red Blood Cells % 0.0 % (0-0); RBC Red Blood Cell Count 4.70 M/uL (3.86-4.86); White Blood Count 5.50 thou/uL (4.3-10.9)
[2025-06-16 12:09] LABS: Anion Gap 9.6 mEq/L (5.0-15.0); BUN Blood Urea Nitrogen 12.0 mg/dL (7-18); Glucose Level 100.0 mg/dL (74-106); Potassium 3.6 mEq/L (3.5-5.1)
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
[2025-06-16 12:53] VITALS: O2SAT 97
[2025-06-16 12:54] VITALS: BP 114/60
== END 2025-06-16 12:47 | disposition home or self-care (01) ==
LOC: ER 10:35
DX: S06.0X0A Concussion without loss of consciousness, initial encounter (principal); S00.83XA Contusion of other part of head, initial encounter; Y08.89XA Assault by other specified means, initial encounter; Z88.5 Allergy status to narcotic agent
CPT/HCPCS: 96361; 85025; 80048; 36415; 84703; 70450; 71250; 72125; 74176; 96375; 96374; 99284; J2405; J7030